=== PATIENT | male | born 1955 | race Caucasian/White ===

== ENCOUNTER 2018-02-03 06:48 | Day surgery (SDC) | payer MEDICARE, BC ==
[2018-02-02 11:03] VITALS: BMI 26.2
[~2018-02-03 06:48] MED LIST: Prevnar 13-Val Conj/PF 0.5 ML SYRINGE IM ONE
[2018-02-03] MEDS ORDERED: Heparin 1,000 UNITS/ML VIAL ONE ×2 (09:00)
[2018-02-03 09:07] VITALS: BP 115/82; TEMP 97
--- NOTE | 2018-02-03 10:15 | SPC ---
LEFT UPPER EXTREMITY DIALYSIS FISTULOGRAM: DATE: 02/03/18. FINDINGS: Informed consent was obtained. The left upper extremity was prepped and draped in the usual sterile manner. A 1% Lidocaine solution was used to anesthetize the overlying soft tissues. A small dermato katerin was made. A 5 Persian micropuncture set was used to gain access into the left upper extremity di alysis fistula. Left upper extremity dialysis fistulogram was performed. RADIATION DOSIMETRY: 1.6 minutes of fluoroscopy and DAP of 6.08 uGy*^cm2. Images demonstrate the left upper extremity dialysis fistula to be tortuous and have areas of intimal hyperplasia. There are areas of a large aneurysm in the proximal portion of the fistula. More dist ally, there is a second smaller area of aneurysmal dilatation. These likely represent areas of pseud oaneurysms from repeated fistula accesses. There is excellent inflow. There is good flow through th e left upper extremity fistula. The fistula consists of arterial anastomosis with the cephalic vein. The cephalic vein has been rerouted in anastomosis with the left axillary vein. The axillary vein and subclavian veins as well as left brachiocephalic vein and superior vena cava are all patent. 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 There is a large more proximal one and a smaller more distal area of aneurysmal dilatation. POS: SHIRAZ
[2018-02-03] MEDS ORDERED: Iopamidol 300 61% 100 ML VIAL FS ONE (13:58)
== END 2018-02-03 09:30 | disposition home or self-care (01) ==
LOC: SPEC 06:48
PROVIDERS: ATTEND Internal Medicine Nephrology
PROC: B50W1ZZ Plain Radiography of Dialysis Shunt/Fistula using Low Osmolar Contrast (ICD-10-PCS; principal; 2018-02-03)
DX: I77.0 Arteriovenous fistula, acquired (principal); Z91.041 Radiographic dye allergy status; Z88.1 Allergy status to other antibiotic agents
CPT/HCPCS: 36901; J1644

== ENCOUNTER 2018-03-01 13:04 | Day surgery (SDC) | payer MEDICARE, BC ==
--- NOTE | 2018-02-10 23:26 | HP ---
HISTORY OF PRESENT ILLNESS: Mrak Zuniga is a 62-year-old male dialyzes at [facility], followed by Dr. Zhu. He dialyzes Wednesday, Wednesday, and Wednesday at 3:00 p[address] The patient had pl acement of a left forearm fistula in 2005, revised upper arm fistula in 2009. He has had problems wi th persistent bleeding on one focus of the fistula in his upper arm. He underwent fistulogram at [facility] recently revealing aneurysmal dilatation and area of firmness. This fistulogram per formed on 02/03/2018. Per clinical history and scars on his upper extremity and fistulogram, it is a pparent that he has undergone previous revision of the cephalic vein outflow to the axillary vein or brachial vein. Outflow looks healthy. Plan is to revise his fistula with repair of his aneurysm. Chery rivera understands risks and benefits of procedure and consents. The patient has a history of dialyzing h imself at home, but now goes to outpatient dialysis. TOBACCO: None. ALCOHOL: None. MEDICATIONS: [place] p.r.n., Zofran p.r.n., B complex daily, Prozac 10 mg a day, atorvastatin 10 mg a day, niacin 500 mg a day, aspirin 81 mg a day, Protonix 40 mg a day, metoprolol 50 mg a day, Dialyvit e 800 mg a day, Ecotrin daily, Epogen routinely, Sensipar daily, Lipitor daily, carvedilol daily, Alvino vix daily, ranitidine daily. PAST SURGICAL HISTORY: The patient has a history of exstrophic bladder and as a child underwent xavier ral operations and has urostomy bag chronically. He has had 2006 left forearm fistula, probably Cimi no, converted to left upper arm fistula in 2009 with revision of outflow to the axillary or brachial vein, ORIF of TL spine last year, coronary artery bypass grafting in 2006 in [place], he is followed b y Dr. Santana, had coronary stents in 2012, has history of GI bleeding with esophageal ulcer cauterize d. DRUG ALLERGIES: LEVAQUIN, caused heel pain; IODINE. REVIEW OF SYSTEMS: Ten-point noncontributory. PHYSICAL EXAMINATION: VITAL SIGNS: Weight 177 pounds, height 67 inches, blood pressure 86/61, pulse 91, temperature 97 deg vicky. HEAD, EARS, EYES, NOSE, AND THROAT: Unremarkable. LUNGS: Clear to auscultation. CARDIAC: Regular rate and rhythm without murmur or gallop. ABDOMEN: Soft, nontender. The patient is in a motorized wheelchair. He has a urostomy appliance to his abdomen. He has left upper arm fistula with scars consistent with revision to cephalic vein out flow to the axillary vein. Good thrill and bruit in his fistula. He has aneurysm dilatation, mid up per arm. ASSESSMENT: Left upper extremity arteriovenous fistula aneurysm. PLAN: Repair as an outpatient due to prolonged bleeding. Risk and benefits explained. He consents.
[2018-02-28 12:36] VITALS: BMI 27.8
[2018-03-01 13:48] LABS: Hemoglobin 8.4 g/dL (14.0-18.0); Mean Corpuscular HGB CONC 31.9 g/dL (32.0-36.0); Mean Corpuscular Hemoglobin 33.6 pg (27.0-31.0); Mean Platelet Volume 7.1 fL (7.4-10.4); Platelet Count 190 thou/uL (130-400); RBC Distribution Width 17.7 % (11.5-14.5); White Blood Cell (WBC) Count 3.4 thou/uL (4.8-10.8)
[2018-03-01 14:07] LABS: Anisocytosis SLIGHT = 6-15 cells (100X) (0-5/hpf); Band 13 % (5-11); Eosinophils 3 % (0-10); Lymphocytes 25 % (21-51); MDiff Complete? YES; Macrocytosis SLIGHT = 6-15 cells (100X) (0-5/hpf); Monocytes 24 % (0-10); Neutrophil 33 % (42-75); Ovalocytes SLIGHT = 2-5 cells (100X) (0-1/hpf); PLT Morphology Comment Appears Adequate; Polychromasia SLIGHT = 2-3 cells (100X) (0-2/hpf); Reactive Lymphocytes 1 % (0-10)
[2018-03-01 14:18] LABS: Anion Gap 12 mmol/L (10-20); BUN (Urea Nitrogen) 32 mg/dL (8.4-25.7); Calc. Creatinine Clearance 33 mL/min (70-130); Calcium 10.1 mg/dL (7.8-10.44); Carbon Dioxide 31 mmol/L (23-31); Chloride 99 mmol/L (98-107); Estimated GFR-MDRD 25; Glucose 78 mg/dL (80-115); Potassium 4.6 mmol/L (3.5-5.1); Sodium 137 mmol/L (136-145)
[2018-03-01] MEDS ORDERED: Midazolam HCl 2 mg/2 ml Vial ONE (14:55)
[2018-03-01] MEDS ORDERED: Fentanyl 100 MCG/2 ML VIAL ONE ×2 (14:55→17:04)
[2018-03-01] MEDS ORDERED: Bupivacaine PF 0.5% 30 ML VIAL ONE (15:13)
[2018-03-01] MEDS ORDERED: Bupivacaine HCl 0.5%/Epinephrine 1:200,000/PF 30 ml Vial ONE (16:49)
[2018-03-01] MEDS ORDERED: Lidocaine 2% 10 ML INJ ONE (16:49)
[2018-03-01] MEDS ORDERED: Protamine Sulfate 50 MG/5 ML VIAL ONE (16:49)
[2018-03-01] MEDS ORDERED: Heparin 5,000 UNITS/ML VIAL ONE (16:49)
[2018-03-01] MEDS ORDERED: CEFAZOLIN/Water 2 GM/20 ML SYRINGE ONE (17:08)
[2018-03-01] MEDS ORDERED: Bacitracin Zinc Ointment 30 gm TUBE ONE (18:33)
--- NOTE | 2018-03-01 22:15 | OP ---
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 PROCEDURE: Left upper arm cephalic vein arteriovenous fistula aneurysmorrhaphy aneurysm repair. SURGEON: Brandt Hazel M.D. ANESTHESIA: Regional TIVA. DESCRIPTION OF PROCEDURE: The patient was taken to the operating room where under intravenous sedati on and regional anesthesia, left upper extremity was prepped with ChloraPrep, draped in routine fashi on. Incision was made over the aneurysmal dilatation of the cephalic vein fistula left upper arm. T his fistula had been revised to the axillary outflow. The patient was given 6000 units heparin intra venously. After adequate circulation time, the inflow and outflow cephalic vein clamped with vascula r clamp and aneurysm dilatation incised. It was a large saccular aneurysm. Redundant aneurysm sac e xcised elliptically and closed with a plication running to and fro 4-0 Prolene suture. Vascular clam ps released, good flow noted, good hemostasis obtained with the cautery, clips and 4-0 and 6-0 Prolen e. Good hemostasis noted. The patient given 25 mg of protamine intravenously. Subcutaneous tissues approximated with 3-0 Monocryl, skin with subdermal 4-0 Monocryl and DermaGlue applied.
== END 2018-03-01 19:50 | disposition home or self-care (01) ==
LOC: SDC 13:04
PROVIDERS: ATTEND Specialist
PROC: 05WY03Z Revision of Infusion Device in Upper Vein, Open Approach (ICD-10-PCS; principal; 2018-03-01)
DX: T82.898A Other specified complication of vascular prosthetic devices, implants and grafts, initial encounter (principal); I12.0 Hypertensive chronic kidney disease with stage 5 chronic kidney disease or end stage renal disease; N18.6 End stage renal disease; I25.10 Atherosclerotic heart disease of native coronary artery without angina pectoris; Z91.041 Radiographic dye allergy status; Z88.1 Allergy status to other antibiotic agents; Z99.2 Dependence on renal dialysis; Z98.890 Other specified postprocedural states
CPT/HCPCS: 36415; 80048; 85025; 93005; 93010; J0670; J1644; J2250; J2720; J3010; S0020

== ENCOUNTER 2018-03-22 10:21 | Day surgery (SDC) | payer MEDICARE, BC ==
[2018-03-18 11:29] VITALS: BMI 27.8
[2018-03-22] MEDS ORDERED: PROPOFOL 200 MG/20 ML VIAL ONE (11:14)
--- NOTE | 2018-03-22 13:42 | OP ---
DATE OF PROCEDURE: 03/22/2018 SURGEON: Miriam Kearns M.D. PROCEDURE: Esophagogastroduodenoscopy with biopsy. PREOPERATIVE DIAGNOSES: 1. History of bleeding esophageal ulcer in 11/2017. 2. Second look EGD to verify complete healing of the ulcer. POSTOPERATIVE DIAGNOSES: 1. Examination to second portion of duodenum. 2. No evidence of esophageal ulcer. 3. Small sliding hiatal hernia, less than 1 cm. 4. Punctate whitish exudate in the proximal third of the esophagus, suspicious for Caprice, biopsied . 5. Normal stomach. 6. Normal duodenum. PROCEDURE IN DETAIL: Written informed consent was obtained. The patient was brought to the endoscop y suite. Total intravenous anesthesia was administered by Dr. [facility]. The lisa ent was placed in the left lateral decubitus position. A bite block was inserted into the mouth. A Pentax video diagnostic gastroscope was introduced into the oral cavity and the esophagus was careful ly intubated. The gastroscope was advanced under direct visualization to the duodenal bulb. Endosco pic findings revealed no evidence of esophageal ulcer. The area between 30-40 cm from the incisors w as examined and reexamined several times to verify complete resolution of the ulcer. The previous es ophageal ulcer identified in Jeff was at 35 cm from the incisors. A few punctate whitish exudates were noted especially in the proximal third of the esophagus suspicious for possible yeast infection. Biopsies were obtained for histology. A small sliding hiatal hernia, less than 1 cm in length, was noted in the distal esophagus. The stomach was then entered and carefully examined. This included a retroflexed view of the cardia and fundus. There were no abnormalities. The duodenal bulb was als o examined and appeared grossly normal. No ulcers were seen. The stomach was decompressed as the en doscope was removed from the patient. During the procedure, transient hypoxemia was treated with jaw thrust and supplemental oxygen. The patient responded promptly to these maneuvers and the endoscopy was resumed and the exam was completed as detailed above. RECOMMENDATIONS: 1. Await biopsy results. 2. Ask the patient to call me in 1 week for biopsy results. 3. Continue pantoprazole 40 mg daily. 4. Follow up with Gastroenterology as needed.
== END 2018-03-22 14:08 | disposition home or self-care (01) ==
LOC: SDC 10:21
PROVIDERS: ATTEND Internal Medicine Gastroenterology
PROC: 0DB58ZZ Excision of Esophagus, Via Natural or Artificial Opening Endoscopic (ICD-10-PCS; principal; 2018-03-22)
DX: K22.8 Other specified diseases of esophagus (principal); K44.9 Diaphragmatic hernia without obstruction or gangrene; K52.9 Noninfective gastroenteritis and colitis, unspecified; K21.9 Gastro-esophageal reflux disease without esophagitis; N18.6 End stage renal disease; G62.9 Polyneuropathy, unspecified; Z88.1 Allergy status to other antibiotic agents; Z91.041 Radiographic dye allergy status; Z87.891 Personal history of nicotine dependence; Z79.899 Other long term (current) drug therapy
CPT/HCPCS: 88305; 88312; 88313; J2704

== ENCOUNTER 2018-03-28 15:14 | Inpatient (IN) | payer MEDICARE, BC ==
[2018-03-28] MEDS ORDERED: Acetaminophen 500 MG TAB ONE (15:57)
[2018-03-28 16:14] LABS: Hemoglobin 9.8 g/dL (14.0-18.0); Mean Corpuscular HGB CONC 31.5 g/dL (32.0-36.0); Mean Corpuscular Hemoglobin 32.1 pg (27.0-31.0); Mean Platelet Volume 8.7 fL (7.4-10.4); Platelet Count 196 thou/uL (130-400); RBC Distribution Width 15.9 % (11.5-14.5); Red Blood Cell (RBC) Count 3.06 mill/uL (4.70-6.10); White Blood Cell (WBC) Count 6.3 thou/uL (4.8-10.8)
--- NOTE | 2018-03-28 16:19 | RAD ---
PORTABLE CHEST: Date: 03/28/18 COMPARISON: 04/28/17. HISTORY: Dyspnea. FINDINGS: Heart size is enlarged. There are postop sternotomy changes. There has been development of some incre ased density in the left bases suggesting infiltrate, perhaps with effusion. Some minimal parenchymal changes are seen in the right base. Surgical clips are seen in the epigastric region. IMPRESSION: Increased opacification in the left lung base suggesting infiltrate or possibly atelectasis with effu sylvia. POS: SHIRAZ
[2018-03-28 16:33] LABS: CKMB 3.7 ng/mL (0-6.6); Troponin I 0.023 ng/mL (< 0.028)
[2018-03-28 16:38] LABS: Anisocytosis SLIGHT = 6-15 cells (100X) (0-5/hpf); Band 13 % (5-11); Eosinophils 4 % (0-10); Lymphocytes 12 % (21-51); MDiff Complete? YES; Macrocytosis SLIGHT = 6-15 cells (100X) (0-5/hpf); Monocytes 11 % (0-10); Neutrophil 60 % (42-75); PLT Morphology Comment Appears Adequate; Polychromasia SLIGHT = 2-3 cells (100X) (0-2/hpf)
[2018-03-28 17:21] LABS: Albumin 3.5 g/dL (3.4-4.8)
[2018-03-28 17:22] LABS: Calcium 10.5 mg/dL (7.8-10.44); Chloride 100 mmol/L (98-107); Potassium 5.3 mmol/L (3.5-5.1); Sodium 140 mmol/L (136-145)
[2018-03-28 17:23] LABS: Glucose 84 mg/dL (80-115)
[2018-03-28] MEDS ORDERED: Piperacillin/Tazobactam 4.5 GM VIAL ONE (17:23)
[2018-03-28 17:24] LABS: Globulin 2.9 g/dL (2.4-3.5); Protein, Total 6.4 g/dL (5.8-8.1)
[2018-03-28 17:25] LABS: Anion Gap 21 mmol/L (10-20); Carbon Dioxide 24 mmol/L (23-31)
[2018-03-28 17:26] LABS: Alkaline Phosphatase 236 U/L (40-150)
[2018-03-28 17:27] LABS: BUN (Urea Nitrogen) 59 mg/dL (8.4-25.7); Calc. Creatinine Clearance 0 mL/min (70-130); Estimated GFR-MDRD 16
[2018-03-28 17:28] LABS: AST (SGOT) 22 U/L (5-34)
[2018-03-28 17:29] LABS: ALT (SGPT) 17 U/L (8-55)
[2018-03-28] MEDS ORDERED: Calcium Gluc 4.6 MEQ/10 ML (100 MG/ML) ONE (18:10)
--- NOTE | 2018-03-28 18:12 | PDOC.FPRHP ---
- History of Present Illness Chief Complaint: Chills History of Present Illness: This is a 62 y/o M with a PMHx of ESRD on HD MWF, CAD s/p 5v CABG, and CHF with most recent EF of 45-50% who presents to the ED due to chills and nausea. The history was obtained by the due to the patient's AMS. The patient was feeling fine this AM, but then suddenly while driving to [place] he began having chills. He continued getting progressively worse. He began complaining of nausea as well, but no emesis. He never checked his temperature. He was also complaining of body aches. He got more and more sleepy throughout the day. She took him to dialysis that afternoon, but they said to just bring him to the ED. He is compliant with dialysis, and his last dialysis was Wednesday. He does not make urine. He had been having a cough that is not new, but has become more "wet sounding". He has a complicated h/o being in and out of LTAC/rehab facilities over the past 11 months after being hospitalized for a T12-L1 fx and subsequent MSSA infection. He is now non-ambulatory. He is currently being worked up for Chronic Inflammatory Demyelinating Polyneuropathy. He has lost 50 pounds in the past few months. ED Course: The patient was evaluated in the ED by Dr. Hubbard and was given 1g Calcium gluconate, 2 boluses of 500mL, Zosyn 4.5g, Vanc 15mg/kg, Tylenol 1000mg - Allergies/Adverse Reactions Allergies Allergy/AdvReac Type Severity Reaction Status Date / Time Iodinated Contrast- Oral and Allergy Hives Verified 03/28/18 20:17 IV Dye [Iodinated Contrast Media - IV Dye] levofloxacin [From Levaquin] Allergy heel pain Verified 03/28/18 20:17 - Home Medications Medication Instructions Recorded Confirmed Type Pregabalin [Lyrica] 75 mg PO BID 03/27/17 03/28/18 History Multivit, Therapeutic [Theragran] 1 tab PO HS tab 04/08/17 03/28/18 Rx Atorvastatin Calcium [Lipitor] 10 mg PO HS 02/02/18 03/28/18 History L. Acidophilus/Pectin, Hemphill 1 tablet PO BID 02/02/18 03/28/18 History [Acidophilus Caplet] Niacin (Inositol Niacinate) 1,000 mg PO HS 02/02/18 03/28/18 History [Niacin] Ondansetron HCl [Zofran] 4 mg PO Q8HR PRN 02/02/18 03/28/18 History Pantoprazole [Protonix] 40 mg PO DAILY 02/02/18 03/28/18 History traZODone HCl [Trazodone HCl] 50 mg PO HS 02/02/18 03/28/18 History Ascorbate Calcium [Vitamin C] 500 mg PO DAILY 02/28/18 03/28/18 History Aspirin [Adult Aspirin] 81 mg PO DAILY 02/28/18 03/28/18 History FLUoxetine HCl [Fluoxetine HCl] 40 mg PO DAILY 02/28/18 03/28/18 History Vitamin B Complex 1 each PO DAILY 02/28/18 03/28/18 History Zinc 220 mg PO DAILY 02/28/18 03/28/18 History - History PMHx: 1. ESRD on HD 2. MARTY on BiPAP - he has not been compliant with using this lately 3. CAD s/p CABG and stents 4. Anemia of CKD 5. CHF (EF 45-50% in 04/2017) 6. T12-L1 Fx 7. Esophageal Ulcer PSHx: 1. 5v CABG 2. 2 coronary stents 3. L AV fistula 4. Cholecystectomy FHx: Sister - DM, HTN Mom - HTN Social: , bed bound, former 20 pack year smoking history, quit 35 years ago. Denies EtOH or drug use PCP: Tejinder Oneil [employer]: Audra - Review of Systems ROS unobtainable: due to mental status - Vital signs BP: 101/79 HR: 113 RR: 24 Tmax: 100.1 Pox: 96% on 2L Wt: 71.8kg - Physical Exam Constitutional: NAD, well developed, other (lethargic, drowsy) HEENT: normocephalic and atraumatic, PERRLA, conjunctiva clear, normal nasal mucosa, MMM, oropharynx clear Neck: supple, no LAD, no JVD Heart: RRR, normal S1/S2, no murmurs/rubs/gallops, pulses present, other (1+ pitting edema to mid-lozano bilaterally, thrill over L AV fistula) -Lungs: good respiratory effort, rhonchi bilaterally, worse on L, decreased breath sounds at L lung base Abdomen: soft, bowel sounds present, no masses/distention, other (mildly tender to palpation, no guarding or rebound) Musculoskeletal: normal structure, normal tone -Neurological: GCS 13, CN II-XII intact Skin: no rash/lesions, good turgor, capillary refill <2 seconds Heme/Lymphatic: no unusual bruising or bleeding FMR H&P: Results - Labs Result Diagrams: 03/28/18 16:00 03/28/18 16:57 Lab results: WBC 6.3 thou/uL (4.8-10.8) 03/28/18 16:00 Hgb 9.8 g/dL (14.0-18.0) L 03/28/18 16:00 Hct 31.2 % (42.0-52.0) L 03/28/18 16:00 MCV 102.0 fl (80.0-94.0) H 03/28/18 16:00 Plt Count 196 thou/uL (130-400) 03/28/18 16:00 Band Neuts % (Manual) 13 % (5-11) H 03/28/18 16:00 Sodium 140 mmol/L (136-145) 03/28/18 16:57 Potassium 5.3 mmol/L (3.5-5.1) H 03/28/18 16:57 Chloride 100 mmol/L (98-107) 03/28/18 16:57 Carbon Dioxide 24 mmol/L (23-31) 03/28/18 16:57 BUN 59 mg/dL (8.4-25.7) H 03/28/18 16:57 Creatinine 3.90 mg/dL (0.6-1.3) H 03/28/18 16:57 Glucose 84 mg/dL (80-115) 03/28/18 16:57 Lactic Acid 2.9 mmol/L (0.5-2.2) H 03/28/18 16:00 Calcium 10.5 mg/dL (7.8-10.44) H 03/28/18 16:57 Total Bilirubin 1.0 mg/dL (0.2-1.2) 03/28/18 16:57 AST 22 U/L (5-34) 06/04/18 16:57 ALT 17 U/L (8-55) 03/28/18 16:57 Alkaline Phosphatase 236 U/L (40-150) H 03/28/18 16:57 CK-MB (CK-2) 3.7 ng/mL (0-6.6) 03/28/18 16:00 B-Natriuretic Peptide 1192.9 pg/mL (0-100) H 03/28/18 16:00 Serum Total Protein 6.4 g/dL (5.8-8.1) 03/28/18 16:57 Albumin 3.5 g/dL (3.4-4.8) 03/28/18 16:57 - EKG Interpretation EKG: Sinus tachycardia, ST depression in V5, V6 - Radiology Interpretation Chest x-ray Status: image reviewed by me, report reviewed by me Additional comment: increased opacification at left lung base suggesting infiltrate or possibly atelectasis with effusion FMR H&P: A/P - Problem List (1) Severe sepsis Current Visit: Yes Status: Acute Code(s): A41.9 - SEPSIS, UNSPECIFIED ORGANISM; R65.20 - SEVERE SEPSIS WITHOUT SEPTIC SHOCK (2) HAP (hospital-acquired pneumonia) Current Visit: Yes Status: Acute Code(s): J18.9 - PNEUMONIA, UNSPECIFIED ORGANISM (3) Lactic acidosis Current Visit: Yes Status: Acute Code(s): E87.2 - ACIDOSIS (4) Acute confusion Current Visit: No Status: Acute Code(s): R41.0 - DISORIENTATION, UNSPECIFIED (5) Acute respiratory failure Current Visit: Yes Status: Acute Code(s): J96.00 - ACUTE RESPIRATORY FAILURE , UNSP W HYPOXIA OR HYPERCAPNIA Qualifiers: Respiratory failure complication: hypoxia Qualified Code(s): J96.01 - Acute respiratory failure with hypoxia (6) CAD (coronary artery disease) Current Visit: No Status: Chronic Code(s): I25.10 - ATHSCL HEART DISEASE OF [place] CORONARY ARTERY W/O ANG PCTRS Qualifiers: Coronary Disease-Associated Artery/Lesion type: [place] artery [place] vs. transplanted heart: [place] heart Associated angina: without angina Qualified Code(s): I25.10 - Atherosclerotic heart disease of [place] coronary artery without angina pectoris (7) ESRD (end stage renal disease) on dialysis Current Visit: No Status: Chronic Code(s): N18.6 - END STAGE RENAL DISEASE; Z99.2 - DEPENDENCE ON RENAL DIALYSIS (8) H/O esophageal ulcer Current Visit: Yes Status: Acute Code(s): Z87.19 - PERSONAL HISTORY OF OTHER DISEASES OF THE DIGESTIVE SYSTEM (9) Compression fracture of L1 lumbar vertebra Current Visit: No Status: Acute Code(s): S32.010A - WEDGE COMPRESSION FRACTURE OF FIRST LUMBAR VERTEBRA, INIT Qualifiers: Encounter type: subsequent encounter Fracture type: closed Fracture healing: with routine healing Qualified Code(s): S32.010D - Wedge compression fracture of first lumbar vertebra, subsequent encounter for fracture with routine healing Comment: has radiculopathy (10) MARTY treated with BiPAP Current Visit: No Status: Chronic Code(s): G47.33 - OBSTRUCTIVE SLEEP APNEA (ADULT) (PEDIATRIC) (11) Anemia of chronic disease Current Visit: No Status: Chronic Code(s): D63.8 - ANEMIA IN OTHER CHRONIC DISEASES CLASSIFIED ELSEWHERE - Plan Severe Sepsis 2/2 HAP Patient has tachycardia, tachypnea, 13% bands, and LL lung infiltrate, suggestive of PNA. The patient also is lethargic. The patient has been in and out of LTAC/Rehab facilities and had recent surgery in February 2018 on his fistula. His initial lactate was 2.9. s/p Vanc, zosyn, and 1L NS in the ED. Patient is anuric, so did not get UA or urine cx. -Will admit to tele -NS @ 115, monitor for signs of fluid overload due to pt's ESRD -Vanc, Zosyn, Cefepime for HAP coverage -Trend lactate -Blood cultures -NPO at this time due to pt's lethargy, pending dysphagia screen Hospital Acquired Pneumonia Patient has had recent stays in LTAC/rehab, surgeries, and IV abx. He has LLL infiltrate on CXR and signs of sepsis. -Vanc, Zosyn, Cefepime -Blood Cultures -NS @ 115 Lactic Acidosis Initial lactate was 2.9 -Trend lactate -NS @ 115, s/p 1L NS in the ED Acute Hypoxic Respiratory Failure Patient is requiring 2L O2 to maintain O2 sats above 92%. He also uses BiPAP at night to sleep for MARTY, but has been non-compliant with this lately. The patient is lethargic and drowsy and per the has been getting worse throughout the day. -ABG -O2 prn to maintain sats >92% -BiPAP at night ST Depression in V5, V6 The patient has h/o CAD, initial trop was negative. No complaints of chest pain. -Trend trops -Continue aspirin -Monitor on tele -Repeat EKG if new or worsening CP ESRD on HD Patient gets HD MWF, last dialyzed on Wednesday. No signs of fluid overload at this time. -Dr. Zhu has been consulted, appreciate recs -Renally dose medications CAD s/p 5v CABG and [address] elevation on EKG -Monitor on tele -Aspirin MARTY on BiPAP -Continue BiPAP at night CHF Last EF in 04/2017 was 45-50% -Monitor for signs of overload with giving pt fluids Anemia of CKD Hb 9.8 on admission, near pt's baseline -Stable, will monitor h/o Esophageal Ulcer -Continue protonix once pt more alert h/o T12-L1 fx VTE ppx: heparin Code status: DNR Disposition/LOS: Admit to tele, length of stay likely 2 days FMR H&P: Upper Level - Pertinent history 62 yo M with PMH of ESRD on HD, multiple recent LTAC stays, CAD s/p 5v CABG presenting with nausea, cough, and chills worsening over the past few days. Was scheduled to receive dialysis today with Dr. Zhu, but was not feeling well , and was advised to go to the ER. Recently hospitalized for T12 and L1 fracture that was complicated by MSSA sepsis for which he required a significant LTAC stay to recover from. Has also been undergoing work up for potential diagnosis of chronic immune demyelinating polyneuropathy due to his gradual loss of function of his legs, for which he is wheelchair bound. Had had some chills recently, but no measured fevers at home. 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 No known recent sick contacts. - Pertinent findings PE: T: 99.1 P: 117 BP: 97/73 RR: 24 100% 2L N/C Gen: somnolent male in NAD HEENT: PERRL, EOMI, MMM, no lymphadenopathy or thyromegaly CV: RRR no murmurs, distal pulses intact, R fistula with intact thrill Pulm: bilateral rhonchorous breath sounds, worse on L than R, michele. at base Abd: soft, NT/ND, BS present, no masses or distention Ext: pitting edema to mid lozano bilaterally MSK: MILLER well, no joint or muscle pain or swelling Neuro: CN 2-12 intact, normal sensation, decreased strength in bilateral LE Skin: no rashes or lesions Psych: A&O x2, appropriate in conversation - Plan Date/Time: 03/28/18 1809 62 yo M presenting with fatigue and nausea. 1) Acute hypoxic respiratory failure: Likely 2/2 severe sepsis from pneumonia. Not on oxygen at home. CXR concerning for possible pneumonia, will treat for HAP given multiple LTAC stays in last few months, and recent antibiotics for surgical procedures this year. Would benefit from resumption of BiPAP overnight , though he has been off this the last week or two. Duonebs prn. Blood cultures pending. Continue IVF resuscitation. PT/OT. 2) Severe sepsis 2/2 HAP: Plan as above. 3) ESRD on MWF HD: Audra consulted, plan for dialysis tonight. 4) CAD: EKG in ER with STd in V5 and V6, trend troponins, monitor tele strip overnight, repeat EKG later tonight. Continue ASA. 5) MARTY: resume BiPAP 6) PUD: continue PPI I, [Kevin Euceda], have evaluated this patient and agree with findings/plan as outlined by legal internship resident. Pertinent changes/additions are listed here. Attending Addendum - Attending Addendum Date/Time: 03/28/18 458 I personally evaluated the patient and discussed the management with Dr. Mackey/ Ok. I agree with the History, Examination, Assessment and Plan documented above with any addition or exceptions noted below. Patient with history of ESRD on HD, CAD s/p 5vCABG, unspecified polyneuropathy, and nonambulatory status presenting after 1 day onset of worsening chills, body aches, nausea, and increased lethargy. endorses a subacute onset of "wet" cough. Throughout today, patient continued to decline and was sent to the ER from his dialysis center. On exam, he is sleepy, but will answer questions appropriately, A&Ox3. BP 96/70. RRR c 3/6 systolic murmur. Lungs are overall clear on R side, rhonchi and rales present on the L side, mainly basilar. No edema. Warm extremities. Lab work is pertinent for normal WBC but bandemia. He has a chronic anemia, likely 2/2 ESRD. Other labs are consistent with chronic renal failure. His CXR shows likely infiltrate in the LLL. No major vascular congestion. Lactate initially elevated but now downtrending. Patient initially requiring 2L O2 by NC to keep sats >92%. A/P: 1. Acute hypoxic respiratory failure 2/2 Pneumonia, with concern for drug resistant organisms due to terminal superintendent presence in healthcare facilities, 2. ESRD on HD, 3. CAD s/p CABG, 4. Anemia of CKD. Patient will be admitted to [facility]. Check PCT. Continue broad spectrum abx and narrow as able. Will attempt to collect sputum culture. He did not receive adequate fluid resuscitation in the ER, but fortunately they are not removing volume in HD. Will continue hydration and increase IVF rate if he has mild hypotension. Blood cultures obtained. Supplemental O2 as necessary. HD sessions per Nephrology (Audra). Recheck lactate after HD session. Will check ABG to ensure no CO2 trapping with his lethargy, though there is no evidence currently of altered mentation. CPAP for his home MARTY.
[2018-03-28 20:11] LABS: Lactic Acid 2.3 mmol/L (0.5-2.2)
[2018-03-28] MEDS ORDERED: Ondansetron ODT 4 MG TAB PO PRN (21:06)
[2018-03-28] MEDS ORDERED: Ondansetron HCl/PF 4 MG/2 ML Vial IVP PRN (21:06)
[2018-03-28] MEDS ORDERED: CEFAZOLIN 1 GM in Sodium Chloride 0.9% 100 ML IVPB SCH (22:00)
[2018-03-28 23:09] LABS: Troponin I 0.086 ng/mL (< 0.028)
[2018-03-29 00:22] LABS: HBSAB Concentration 1.07 mIU/mL; HBSAg Index 0.32 S/CO (0-0.99); Hep B Surf AB Non-Reactive (NonReactive); Hep B Surf Ag Non-Reactive S/CO (NonReactive)
[2018-03-29 01:00] LABS: Troponin I 0.134 ng/mL (< 0.028)
[2018-03-29] MEDS: Heparin 5,000 UNITS/ML VIAL SC SCH ×4 (01:34→20:32)
[2018-03-29] MEDS: Cefepime 1 GM in Sodium Chloride 0.9% 100 ML IVPB SCH ×2 (01:35→21:19)
[2018-03-29] MEDS: Sodium Chloride 0.9% 1,000 ML IV SCH ×2 (01:35→12:27)
--- NOTE | 2018-03-29 01:47 | CON ---
NEPHROLOGY CONSULTATION DATE OF CONSULTATION: 03/28/2018 REASON FOR CONSULTATION: End-stage renal disease, on maintenance hemodialysis. HISTORY OF PRESENT ILLNESS: This is a very pleasant 62-year-old gentleman who presented to the [facility] with fever, chills, cough, and feeling weak. The patient was very somnolent. The patient dialys is Wednesday, Wednesday, and Wednesday. The patient has had a cough. PAST MEDICAL HISTORY: Significant for end-stage renal disease, hypertension, coronary artery disease , CABG, anemia, congestive heart failure, esophageal ulcer, coronary artery stent, left AV fistula, c holecystectomy. REVIEW OF SYSTEMS: Not obtainable. The patient is very somnolent. HOME MEDICATIONS: List reviewed. HOSPITAL MEDICATIONS: Reviewed. ALLERGIES: Reviewed. PHYSICAL EXAMINATION: GENERAL: Patient is resting. VITAL SIGNS: Afebrile, temperature 100, breathing at 16, blood pressure 101/79, heart rate 113. GENERAL APPEARANCE AND MENTAL STATUS: Fair. HEAD/NECK: Normocephalic. Atraumatic. EYES: EOMI. No deformity. EARS: Clear. No ulcers. NOSE: Intact. No lesions. MOUTH: Clear. No discharge. THROAT: Clear. No exudate. LUNGS: Clear. No crackles. CARDIAC: S1, S2. No rub. ABDOMEN: Benign. BS+. GENITALIA/RECTUM: Lea absent. BACK/EXTREMITIES: Edema 0+ Ulcer- SKIN: Rash- Bruise- LYMPHATICS: Edema- Ulcer- NEUROLOGIC: The patient is somnolent. LABORATORY: Potassium 5.3. ASSESSMENT AND RECOMMENDATIONS: Stage 6 chronic kidney disease with hyperkalemia and hypercalcemia. We will plan hemodialysis. No ultrafiltration will keep blood pressure more than 100. Anemia, stab le. Medication based on glomerular filtration rate. Pneumonia and sepsis management per primary sumit seo
[2018-03-29] MEDS: Piperacillin/Tazobactam 2.25 GM in Sodium Chloride 0.9% 100 ML IVPB SCH ×3 (02:24→20:27)
[2018-03-29 05:30] LABS: Anion Gap 11 mmol/L (10-20); BUN (Urea Nitrogen) 29 mg/dL (8.4-25.7); Calc. Creatinine Clearance 38 mL/min (70-130); Calcium 9.5 mg/dL (7.8-10.44); Carbon Dioxide 29 mmol/L (23-31); Chloride 103 mmol/L (98-107); Estimated GFR-MDRD 31; Glucose 82 mg/dL (80-115); Potassium 4.2 mmol/L (3.5-5.1); Sodium 139 mmol/L (136-145)
[2018-03-29 05:32] LABS: Troponin I 0.201 ng/mL (< 0.028)
[2018-03-29 06:32] LABS: Hemoglobin 7.6 g/dL (14.0-18.0); Mean Corpuscular HGB CONC 31.5 g/dL (32.0-36.0); Mean Corpuscular Hemoglobin 32.2 pg (27.0-31.0); Mean Platelet Volume 7.8 fL (7.4-10.4); Platelet Count 139 thou/uL (130-400); RBC Distribution Width 15.2 % (11.5-14.5); Red Blood Cell (RBC) Count 2.35 mill/uL (4.70-6.10); White Blood Cell (WBC) Count 5.9 thou/uL (4.8-10.8)
[2018-03-29 08:46] LABS: Band 22 % (5-11); Basophilic Stippling SLIGHT = 1-2 cells (100X) (None Seen); Eosinophils 1 % (0-10); Hypochromia SLIGHT = 6-15 cells (100X) (0-5/hpf); Lymphocytes 14 % (21-51); MDiff Complete? YES; Metamyelocyte 1 % (0-0); Monocytes 10 % (0-10); Neutrophil 50 % (42-75); PLT Morphology Comment Appears Adequate; Polychromasia SLIGHT = 2-3 cells (100X) (0-2/hpf); Reactive Lymphocytes 2 % (0-10)
[2018-03-29 08:54] LABS: Troponin I 0.243 ng/mL (< 0.028)
--- NOTE | 2018-03-29 08:59 | PDOC.FM ---
- Subjective Subjective: Patient is awake, oriented and found sitting in bed. He states he feels better. He denies fever, chills, SOB, pain. - Objective MAR Reviewed: Yes Vital Signs & Weight: Vital Signs (12 hours) Temp Pulse Resp BP Pulse Ox 03/29/18 07:35 98.3 F 88 16 91/59 L 94 L 03/29/18 04:09 97.9 F 78 17 96/64 99 03/29/18 01:27 97.4 F L 88 19 93/87 97 I&O: 03/28/18 03/29/18 03/30/18 06:59 06:59 06:59 Intake Total 744 Output Total 0 Balance 744 Result Diagrams: 03/29/18 05:01 03/29/18 05:01 Phys Exam - Physical Examination Constitutional: NAD HEENT: moist MMs Neck: no nodes, supple Respiratory: no wheezing, no rhonchi Cardiovascular: RRR 2/6 systolic murmur Gastrointestinal: soft, no distention Musculoskeletal: no edema Neurological: non-focal, moves all 4 limbs Lymphatic: no nodes Psychiatric: normal affect Deviation from normal: Sternotomy scar Dx/Plan (1) HAP (hospital-acquired pneumonia) Code(s): J18.9 - PNEUMONIA, UNSPECIFIED ORGANISM Status: Acute Plan: Improving at this time without need for supplemental O2 Plan for continued broad abx, await culture result. (2) Acute respiratory failure Code(s): J96.00 - ACUTE RESPIRATORY FAILURE, UNSP W HYPOXIA OR HYPERCAPNIA Status: Acute Qualifiers: Respiratory failure complication: hypoxia Qualified Code(s): J96.01 - Acute respiratory failure with hypoxia Plan: Issue resolving, with patient no longer needing supplemental oxyhgen. Plan for cpap at night for his known MARTY (3) Severe sepsis Code(s): A41.9 - SEPSIS, UNSPECIFIED ORGANISM; R65.20 - SEVERE SEPSIS WITHOUT SEPTIC SHOCK Status: Acute Plan: Improving issue. Mentation is appropriate, vitals stable. (4) ESRD (end stage renal disease) on dialysis Code(s): N18.6 - END STAGE RENAL DISEASE; Z99.2 - DEPENDENCE ON RENAL DIALYSIS Status: Chronic Plan: Dr. Zhu with nephrology consulted. Appreciate recs. Patient will receive dialysis while here. (5) Acute confusion Code(s): R41.0 - DISORIENTATION, UNSPECIFIED Status: Acute Plan: Resolved issue. (6) HTN (hypertension) Code(s): I10 - ESSENTIAL (PRIMARY) HYPERTENSION Status: Chronic Qualifiers: Hypertension type: essential hypertension Qualified Code(s): I10 - Essential (primary) hypertension Plan: Hold BP med at this time. Will monitor BP and restart as needed. (7) Elevated troponin Code(s): R74.8 - ABNORMAL LEVELS OF OTHER SERUM ENZYMES Status: Acute Plan: At this time, currently uptrending, but in indeterminate range. Patient denies SOB or chest pain. Likely reflect demand ischemia from sepsis and ESRD with decreased trop clearance.
[2018-03-29] MEDS ORDERED: Aspirin 300 MG Suppository PR SCH (09:00)
[2018-03-29] MEDS: FLUoxetine HCl 20 MG CAP PO SCH (09:41)
--- NOTE | 2018-03-29 13:06 | PRG ---
DATE OF SERVICE: 03/29/2018 SUBJECTIVE: A 62-year-old gentleman being seen for end-stage renal disease. The patient denies any nausea, vomiting or chest pain. OBJECTIVE: VITAL SIGNS: Afebrile, pulse 75, breathing 16, blood pressure 96/64. GENERAL APPEARANCE AND MENTAL STATUS: Patient is awake, alert. HEAD/NECK: Normocephalic. Atraumatic. EYES: EOMI. No deformity. EARS: Clear. No ulcers. NOSE: Intact. No lesions. MOUTH: Clear. No discharge. THROAT: Clear. No exudate. LUNGS: Clear. No crackles. CARDIAC: S1, S2. No rub. ABDOMEN: Benign. BS+. GENITALIA/RECTUM: Lea absent. BACK/EXTREMITIES: Edema 0+ Ulcer- NEUROLOGICAL: Alert and motor intact. SKIN: Rash- Bruise- LYMPHATICS: Edema- Ulcer- LABORATORY DATA: Hemoglobin 7.6. ASSESSMENT AND RECOMMENDATIONS: 1. Stage 6 chronic kidney disease. Continue hemodialysis. 2. Hypertension. 3. Anemia, plan transfusion and dialysis. 4. Medications based on glomerular filtration rate are appropriate.
[2018-03-29] MEDS ORDERED: Vancomycin HCl 750 MG in Sodium Chloride 0.9% 250 ML 250 ML IVPB SCH (16:00)
[2018-03-29] MEDS: Atorvastatin Calcium 10 MG TAB PO SCH (20:32)
[2018-03-29] MEDS: Lactinex Tablet PO SCH (20:32)
[2018-03-29] MEDS: Multivit, Therapeutic 1 TAB PO SCH (20:32)
[2018-03-29] MEDS ORDERED: ACIDOPHILUS PO SCH (21:00)
[2018-03-29] MEDS ORDERED: PECTIN CITRUS PO SCH (21:00)
[2018-03-29] MEDS ORDERED: NIACIN 1000 MG PO SCH (21:00)
[2018-03-29] MEDS ORDERED: Atorvastatin Calcium 20 MG TAB PO SCH (21:00)
[2018-03-29] MEDS ORDERED: Pregabalin 75 MG CAP PO SCH (22:15)
[2018-03-30] MEDS: Piperacillin/Tazobactam 2.25 GM in Sodium Chloride 0.9% 100 ML IVPB SCH ×3 (01:44→18:09)
[2018-03-30 04:50] LABS: Band 7 % (5-11); Eosinophils 4 % (0-10); Hemoglobin 10.1 g/dL (14.0-18.0); Lymphocytes 30 % (21-51); MDiff Complete? YES; Mean Corpuscular HGB CONC 32.1 g/dL (32.0-36.0); Mean Corpuscular Hemoglobin 31.1 pg (27.0-31.0); Mean Corpuscular Volume 96.8 fl (80.0-94.0); Mean Platelet Volume 8.4 fL (7.4-10.4); Monocytes 12 % (0-10); Neutrophil 45 % (42-75); PLT Morphology Comment Appears Adequate; Platelet Count 128 thou/uL (130-400); RBC Distribution Width 16.9 % (11.5-14.5); Red Blood Cell (RBC) Count 3.25 mill/uL (4.70-6.10); White Blood Cell (WBC) Count 4.5 thou/uL (4.8-10.8)
[2018-03-30 04:52] LABS: Anion Gap 16 mmol/L (10-20); BUN (Urea Nitrogen) 23 mg/dL (8.4-25.7); Calc. Creatinine Clearance 44 mL/min (70-130); Calcium 9.9 mg/dL (7.8-10.44); Carbon Dioxide 23 mmol/L (23-31); Chloride 103 mmol/L (98-107); Estimated GFR-MDRD 34; Glucose 79 mg/dL (80-115); Potassium 3.9 mmol/L (3.5-5.1); Sodium 138 mmol/L (136-145)
[2018-03-30] MEDS ORDERED: Non-Formulary Item 1 EACH (Vitamin B Complex [Vitamin B Complex] 1 EACH) PO SCH (09:00)
[2018-03-30] MEDS ORDERED: FLUoxetine HCl 10 MG CAP PO SCH (09:00)
[2018-03-30] MEDS ORDERED: Non-Formulary Item 1 EACH (Ascorbate Calcium [Vitamin C] 500 MG) PO SCH (09:00)
[2018-03-30] MEDS ORDERED: ZINC 220 MG PO SCH (09:00)
[2018-03-30] MEDS: Ascorbic Acid 500 mg Chewable Tablet PO SCH (10:20)
[2018-03-30] MEDS: Zinc Sulfate 220 MG CAP PO SCH (10:20)
[2018-03-30] MEDS: FLUoxetine HCl 20 MG CAP PO SCH (10:20)
[2018-03-30] MEDS: Heparin 5,000 UNITS/ML VIAL SC SCH ×3 (10:20→20:50)
[2018-03-30] MEDS: Lactinex Tablet PO SCH ×2 (10:21→20:50)
[2018-03-30] MEDS: Stress 600 With Zinc 1 TAB PO SCH (10:21)
--- NOTE | 2018-03-30 10:48 | PDOC.FM ---
- Subjective Subjective: Patient found in bed, having breakfast. He denies SOB, fever, cough, chills or pain. He has no complaint except hospital food. - Objective MAR Reviewed: Yes Vital Signs & Weight: Vital Signs (12 hours) Temp Pulse Resp BP BP Pulse Ox 03/30/18 03:53 98.0 F 87 20 121/81 97 03/30/18 00:00 98.8 F 81 18 95/64 93 L Weight Admit Weight 79.424 kg Weight 82.418 kg I&O: 03/29/18 03/30/18 03/31/18 06:59 06:59 06:59 Intake Total 744 2900 Output Total 0 0 Balance 744 2900 Result Diagrams: 03/30/18 04:12 03/30/18 04:12 <Gera Dennis M - Last Filed: 03/30/18 10:44> - Objective Vital Signs & Weight: Vital Signs (12 hours) Temp Pulse Pulse Pulse Resp BP BP 03/30/18 09:29 80 87 103/67 117/76 03/30/18 08:00 98.0 F 87 20 03/30/18 03:53 98.0 F 87 20 BP Pulse Ox 03/30/18 09:29 03/30/18 08:00 96 03/30/18 03:53 121/81 97 Weight Admit Weight 79.424 kg Weight 82.418 kg I&O: 03/29/18 03/30/18 03/31/18 06:59 06:59 06:59 Intake Total 744 2900 Output Total 0 0 Balance 744 2900 Result Diagrams: 03/30/18 04:12 03/30/18 04:12 <Lester Gongora R - Last Filed: 03/30/18 14:27> Phys Exam - Physical Examination Constitutional: NAD HEENT: moist MMs Respiratory: no wheezing, no rhonchi Cardiovascular: RRR, no significant murmur Gastrointestinal: soft, non-tender, no distention Musculoskeletal: no edema Neurological: moves all 4 limbs Lymphatic: no nodes Psychiatric: normal affect Skin: no rash <Gera Dennis M - Last Filed: 03/30/18 10:44> Dx/Plan (1) HAP (hospital-acquired pneumonia) Code(s): J18.9 - PNEUMONIA, UNSPECIFIED ORGANISM Status: Acute Plan: Improving at this time without need for supplemental O2, except as substitute for cpap as patient does not like hospital cpap Plan for continued broad abx, await culture result. (2) Acute respiratory failure Code(s): J96.00 - ACUTE RESPIRATORY FAILURE, UNSP W HYPOXIA OR HYPERCAPNIA Status: Acute QualifierTitle: Respiratory failure complication: hypoxia Qualified Code( s): J96.01 - Acute respiratory failure with hypoxia Plan: Resolved issue (3) Severe sepsis Code(s): A41.9 - SEPSIS, UNSPECIFIED ORGANISM; R65.20 - SEVERE SEPSIS WITHOUT SEPTIC SHOCK Status: Acute Plan: Improving issue. Mentation is appropriate, vitals stable. Plan to await culture, tailor abx as appropriate (4) ESRD (end stage renal disease) on dialysis Code(s): N18.6 - END STAGE RENAL DISEASE; Z99.2 - DEPENDENCE ON RENAL DIALYSIS Status: Chronic Plan: Dr. Zhu with nephrology consulted. Appreciate recs. Patient will receive dialysis while here. Patient received 2 PRBC during dialysis yesterday for his anemia. (5) Acute confusion Code(s): R41.0 - DISORIENTATION, UNSPECIFIED Status: Acute Plan: Resolved issue. (6) HTN (hypertension) Code(s): I10 - ESSENTIAL (PRIMARY) HYPERTENSION Status: Chronic QualifierTitle: Hypertension type: essential hypertension Qualified Code( s): I10 - Essential (primary) hypertension Plan: BP well controlled at this time. (7) Elevated troponin Code(s): R74.8 - ABNORMAL LEVELS OF OTHER SERUM ENZYMES Status: Acute Plan: Consider resolved at this time as patient has no symptom suggesting ischemic heart and trops likely elevated due to previous sepsis. <Gera Dennis - Last Filed: 03/30/18 10:44> (1) Severe sepsis Code(s): A41.9 - SEPSIS, UNSPECIFIED ORGANISM; R65.20 - SEVERE SEPSIS WITHOUT SEPTIC SHOCK Status: Acute (2) HAP (hospital-acquired pneumonia) Code(s): J18.9 - PNEUMONIA, UNSPECIFIED ORGANISM Status: Acute (3) Lactic acidosis Code(s): E87.2 - ACIDOSIS Status: Acute (4) Acute confusion Code(s): R41.0 - DISORIENTATION, UNSPECIFIED Status: Acute (5) Acute respiratory failure Code(s): J96.00 - ACUTE RESPIRATORY FAILURE, UNSP W HYPOXIA OR HYPERCAPNIA Status: Acute Qualifiers: Respiratory failure complication: hypoxia Qualified Code(s): J96.01 - Acute respiratory failure with hypoxia (6) CAD (coronary artery disease) Code(s): I25.10 - ATHSCL HEART DISEASE OF [place] CORONARY ARTERY W/O ANG PCTRS Status: Chronic Qualifiers: Coronary Disease-Associated Artery/Lesion type: [place] artery [place] vs. transplanted heart: [place] heart Associated angina: without angina Qualified Code(s): I25.10 - Atherosclerotic heart disease of [place] coronary artery without angina pectoris (7) ESRD (end stage renal disease) on dialysis Code(s): N18.6 - END STAGE RENAL DISEASE; Z99.2 - DEPENDENCE ON RENAL DIALYSIS Status: Chronic (8) H/O esophageal ulcer Code(s): Z87.19 - PERSONAL HISTORY OF OTHER DISEASES OF THE DIGESTIVE SYSTEM Status: Acute (9) Compression fracture of L1 lumbar vertebra Code(s): S32.010A - WEDGE COMPRESSION FRACTURE OF FIRST LUMBAR VERTEBRA, INIT Status: Acute Qualifiers: Encounter type: subsequent encounter Fracture type: closed Fracture healing: with routine healing Qualified Code(s): S32.010D - Wedge compression fracture of first lumbar vertebra, subsequent encounter for fracture with routine healing (10) MARTY treated with BiPAP Code(s): G47.33 - OBSTRUCTIVE SLEEP APNEA (ADULT) (PEDIATRIC) Status: Chronic (11) Anemia of chronic disease Code(s): D63.8 - ANEMIA IN OTHER CHRONIC DISEASES CLASSIFIED ELSEWHERE Status : Chronic <Lester Gongora R - Last Filed: 03/30/18 14:27> Attending Addendum - Attending Addendum Date/Time: 03/30/18 0395 I personally evaluated the patient and discussed the management with Dr. Dennis. I agree with the History, Examination, Assessment and Plan documented above with any addition or exceptions noted below. Patient reports feeling well. He continues on antibiotics for presumed sepsis 2/ 2 pneumonia. He sats are improved and he has been afebrile. WBC stable. Hopeful that cultures will result this evening and we can de-escalate antibiotic therapy. Continue therapy and wean O2 as tolerated. Anticipate discharge in next 1-2 days if continues to do well. <Lester Gongora - Last Filed: 03/30/18 14:27>
--- NOTE | 2018-03-30 11:36 | PRG ---
DATE OF SERVICE: 03/30/2018 SUBJECTIVE: This is a 62-year-old gentleman being seen for end-stage renal disease. The patient den ies any nausea, vomiting or chest pain. PHYSICAL EXAMINATION: GENERAL: Patient is awake, alert. VITAL SIGNS: Afebrile, pulse 75, breathing 16, blood pressure was 121/81. HEAD/NECK: Normocephalic. Atraumatic. EYES: EOMI. No deformity. EARS: Clear. No ulcers. NOSE: Intact. No lesions. MOUTH: Clear. No discharge. THROAT: Clear. No exudate. LUNGS: Clear. No crackles. CARDIAC: S1, S2. No rub. ABDOMEN: Benign. BS+. GENITALIA/RECTUM: Lea absent. BACK/EXTREMITIES: Edema 0+ Ulcer- NEUROLOGICAL: Alert and motor intact. SKIN: Rash- Bruise- LYMPHATICS: Edema- Ulcer- LABORATORY DATA: Show hemoglobin 10.1. ASSESSMENT AND RECOMMENDATIONS: 1. Stage 6 chronic kidney disease, continue hemodialysis. 2. Hypertension, stable. 3. Anemia, stable. 4. Medications based on glomerular filtration rate are appropriate.
[2018-03-30 15:11] LABS: Vancomycin, Trough 9.4 ug/mL
[2018-03-30] MEDS ORDERED: Vancomycin HCl 1 GM in Premix Bag 1 BAG IVPB SCH (16:00)
[2018-03-30] MEDS ORDERED: Vancomycin HCl 500 MG in Sodium Chloride 0.9% 100 ML IVPB SCH (16:00)
[2018-03-30] MEDS ORDERED: Vancomycin HCl 1.25 GM in Sodium Chloride 0.9% 250 ML 250 ML IVPB SCH (16:00)
[2018-03-30] MEDS ORDERED: HOLD VANCOMYCIN FOR LEVEL >20 FS SCH (16:00)
[2018-03-30] MEDS ORDERED: Vancomycin HCl 750 MG in Sodium Chloride 0.9% 250 ML 250 ML IVPB SCH (16:00)
[2018-03-30] MEDS: Atorvastatin Calcium 10 MG TAB PO SCH (20:49)
[2018-03-30] MEDS: Pregabalin 75 MG CAP PO SCH (20:49)
[2018-03-30] MEDS: Multivit, Therapeutic 1 TAB PO SCH (20:50)
[2018-03-30] MEDS: Cefepime 1 GM in Sodium Chloride 0.9% 100 ML IVPB SCH (21:01)
[2018-03-31] MEDS: Piperacillin/Tazobactam 2.25 GM in Sodium Chloride 0.9% 100 ML IVPB SCH ×2 (02:29→10:08)
[2018-03-31 03:49] LABS: Anion Gap 14 mmol/L (10-20); BUN (Urea Nitrogen) 14 mg/dL (8.4-25.7); Calc. Creatinine Clearance 56 mL/min (70-130); Carbon Dioxide 27 mmol/L (23-31); Chloride 102 mmol/L (98-107); Estimated GFR-MDRD 45; Glucose 84 mg/dL (80-115); Potassium 3.5 mmol/L (3.5-5.1); Sodium 139 mmol/L (136-145)
[2018-03-31 04:03] LABS: Band 7 % (5-11); Eosinophils 2 % (0-10); Hemoglobin 9.9 g/dL (14.0-18.0); Lymphocytes 32 % (21-51); MDiff Complete? YES; Mean Corpuscular Hemoglobin 30.9 pg (27.0-31.0); Mean Corpuscular Volume 96.5 fl (80.0-94.0); Mean Platelet Volume 7.7 fL (7.4-10.4); Monocytes 14 % (0-10); Neutrophil 45 % (42-75); Platelet Count 131 thou/uL (130-400); RBC Distribution Width 16.2 % (11.5-14.5); Red Blood Cell (RBC) Count 3.22 mill/uL (4.70-6.10); White Blood Cell (WBC) Count 3.2 thou/uL (4.8-10.8)
[2018-03-31] MEDS: Ascorbic Acid 500 mg Chewable Tablet PO SCH (10:09)
[2018-03-31] MEDS: Stress 600 With Zinc 1 TAB PO SCH (10:09)
[2018-03-31] MEDS: Pregabalin 75 MG CAP PO SCH ×2 (10:09→20:48)
[2018-03-31] MEDS: FLUoxetine HCl 20 MG CAP PO SCH (10:09)
[2018-03-31] MEDS: Lactinex Tablet PO SCH ×2 (10:09→20:48)
[2018-03-31] MEDS: Zinc Sulfate 220 MG CAP PO SCH (10:09)
[2018-03-31] MEDS: Heparin 5,000 UNITS/ML VIAL SC SCH ×3 (10:11→20:47)
[2018-03-31 10:14] VITALS: BMI 28.4
--- NOTE | 2018-03-31 10:20 | PDOC.FM ---
- Subjective Subjective: Patient feeling well today - Objective MAR Reviewed: Yes Vital Signs & Weight: Vital Signs (12 hours) Temp Pulse Resp BP BP Pulse Ox 03/31/18 07:30 97.9 F 90 16 127/84 95 03/31/18 04:00 98 F 87 18 125/85 98 03/31/18 01:00 97.7 F 85 18 119/78 97 Weight Admit Weight 79.424 kg Weight 82.418 kg I&O: 03/30/18 03/31/18 04/01/18 06:59 06:59 06:59 Intake Total 2900 1000 Output Total 0 3300 Balance 2900 -2300 Result Diagrams: 03/31/18 03:10 03/31/18 03:10 <Gera Dennis M - Last Filed: 03/31/18 10:25> - Objective Vital Signs & Weight: Vital Signs (12 hours) Temp Pulse Resp BP BP Pulse Ox 03/31/18 07:30 97.9 F 90 16 127/84 95 03/31/18 04:00 98 F 87 18 125/85 98 03/31/18 01:00 97.7 F 85 18 119/78 97 Weight Admit Weight 79.424 kg Weight 82.418 kg I&O: 03/30/18 03/31/18 04/01/18 06:59 06:59 06:59 Intake Total 2900 1000 Output Total 0 3300 Balance 2900 -2300 Result Diagrams: 03/31/18 03:10 03/31/18 03:10 <Lester Gongora - Last Filed: 03/31/18 10:56> Phys Exam - Physical Examination Constitutional: NAD HEENT: moist MMs Neck: no nodes, supple Respiratory: no wheezing, no rales, clear to auscultation bilateral Cardiovascular: RRR, no significant murmur, no rub Gastrointestinal: soft Musculoskeletal: no edema Neurological: non-focal, moves all 4 limbs Lymphatic: no nodes Psychiatric: normal affect Skin: no rash <Gera Dennis - Last Filed: 03/31/18 10:25> Dx/Plan (1) HAP (hospital-acquired pneumonia) Code(s): J18.9 - PNEUMONIA, UNSPECIFIED ORGANISM Status: Acute Plan: Improving at this time without need for supplemental O2, except as substitute for cpap as patient does not like hospital cpap Plan augmentin on discharge, no growth from culture in 48 hours (2) Acute respiratory failure Code(s): J96.00 - ACUTE RESPIRATORY FAILURE, UNSP W HYPOXIA OR HYPERCAPNIA Status: Acute QualifierTitle: Respiratory failure complication: hypoxia Qualified Code( s): J96.01 - Acute respiratory failure with hypoxia Plan: Resolved issue (3) Severe sepsis Code(s): A41.9 - SEPSIS, UNSPECIFIED ORGANISM; R65.20 - SEVERE SEPSIS WITHOUT SEPTIC SHOCK Status: Acute Plan: Improving issue. Mentation is appropriate, vitals stable. Plan for augmentin renally dose for pneumonia. (4) ESRD (end stage renal disease) on dialysis Code(s): N18.6 - END STAGE RENAL DISEASE; Z99.2 - DEPENDENCE ON RENAL DIALYSIS Status: Chronic Plan: Dr. Zhu with nephrology consulted. Appreciate recs. Patient will receive dialysis while here. (5) Acute confusion Code(s): R41.0 - DISORIENTATION, UNSPECIFIED Status: Acute Plan: Resolved issue. (6) HTN (hypertension) Code(s): I10 - ESSENTIAL (PRIMARY) HYPERTENSION Status: Chronic QualifierTitle: Hypertension type: essential hypertension Qualified Code( s): I10 - Essential (primary) hypertension Plan: BP well controlled at this time. (7) Elevated troponin Code(s): R74.8 - ABNORMAL LEVELS OF OTHER SERUM ENZYMES Status: Acute Plan: Consider resolved at this time as patient has no symptom suggesting ischemic heart and trops likely elevated due to previous sepsis. (8) Diarrhea Code(s): R19.7 - DIARRHEA, UNSPECIFIED Status: Acute Plan: Patient had loose stool x5 yesterday and has prior history of c. diff. Plan to obtain c diff screen. <Gera Dennis M - Last Filed: 03/31/18 10:25> (1) Severe sepsis Code(s): A41.9 - SEPSIS, UNSPECIFIED ORGANISM; R65.20 - SEVERE SEPSIS WITHOUT SEPTIC SHOCK Status: Acute (2) HAP (hospital-acquired pneumonia) Code(s): J18.9 - PNEUMONIA, UNSPECIFIED ORGANISM Status: Acute (3) Lactic acidosis Code(s): E87.2 - ACIDOSIS Status: Acute (4) Acute confusion Code(s): R41.0 - DISORIENTATION, UNSPECIFIED Status: Acute (5) Acute respiratory failure Code(s): J96.00 - ACUTE RESPIRATORY FAILURE, UNSP W HYPOXIA OR HYPERCAPNIA Status: Acute Qualifiers: Respiratory failure complication: hypoxia Qualified Code(s): J96.01 - Acute respiratory failure with hypoxia (6) CAD (coronary artery disease) Code(s): I25.10 - ATHSCL HEART DISEASE OF [place] CORONARY ARTERY W/O ANG PCTRS Status: Chronic Qualifiers: Coronary Disease-Associated Artery/Lesion type: [place] artery [place] vs. transplanted heart: [place] heart Associated angina: without angina Qualified Code(s): I25.10 - Atherosclerotic heart disease of [place] coronary artery without angina pectoris (7) ESRD (end stage renal disease) on dialysis Code(s): N18.6 - END STAGE RENAL DISEASE; Z99.2 - DEPENDENCE ON RENAL DIALYSIS Status: Chronic (8) H/O esophageal ulcer Code(s): Z87.19 - PERSONAL HISTORY OF OTHER DISEASES OF THE DIGESTIVE SYSTEM Status: Acute (9) Compression fracture of L1 lumbar vertebra Code(s): S32.010A - WEDGE COMPRESSION FRACTURE OF FIRST LUMBAR VERTEBRA, INIT Status: Acute Qualifiers: Encounter type: subsequent encounter Fracture type: closed Fracture healing: with routine healing Qualified Code(s): S32.010D - Wedge compression fracture of first lumbar vertebra, subsequent encounter for fracture with routine healing (10) MARTY treated with BiPAP Code(s): G47.33 - OBSTRUCTIVE SLEEP APNEA (ADULT) (PEDIATRIC) Status: Chronic (11) Anemia of chronic disease Code(s): D63.8 - ANEMIA IN OTHER CHRONIC DISEASES CLASSIFIED ELSEWHERE Status : Chronic <Lester Gongora - Last Filed: 03/31/18 10:56> Attending Addendum - Attending Addendum Date/Time: 03/31/18 1232 I personally evaluated the patient and discussed the management with Dr. Dennis. I agree with the History, Examination, Assessment and Plan documented above with any addition or exceptions noted below. Patient feeling improved. Sats ok without supplemental O2, and he feels well. No fevers, and WBC normal. Will de-escalate to oral abx today for presumed pneumonia. He has had development of diarrhea, and is at risk for Cdiff. Are checking Cdiff screen. If negative, can discharge home later today. If positive , he has no evidence of severe infection, normal WBC, and no suggestion of megacolon, and therefore can still be discharged with oral Vancocin therapy. Await results before discharge. <Lester Gongora - Last Filed: 03/31/18 10:56>
--- NOTE | 2018-03-31 10:35 | PRG ---
DATE OF SERVICE: 03/31/2018 SUBJECTIVE: This is a 62-year-old gentleman being seen for end-stage renal disease. The patient den ies any nausea, vomiting or chest pain. PHYSICAL EXAMINATION: GENERAL: Patient is awake, alert. VITAL SIGNS: Afebrile, pulse 90, breathing 16, blood pressure 127/84. OBJECTIVE: See above. Awake, alert, in no acute distress. GENERAL APPEARANCE AND MENTAL STATUS: Fair. HEAD/NECK: Normocephalic. Atraumatic. EYES: EOMI. No deformity. EARS: Clear. No ulcers. NOSE: Intact. No lesions. MOUTH: Clear. No discharge. THROAT: Clear. No exudate. LUNGS: Clear. No crackles. CARDIAC: S1, S2. No rub. ABDOMEN: Benign. BS+. GENITALIA/RECTUM: Lea absent. BACK/EXTREMITIES: Edema 0+ Ulcer- NEUROLOGICAL: Alert and motor intact. SKIN: Rash- Bruise- LYMPHATICS: Edema- Ulcer- LABORATORY DATA: Show hemoglobin 9.9. ASSESSMENT AND RECOMMENDATIONS: 1. Stage 6 chronic kidney disease, continue hemodialysis. 2. Hypertension, stable. 3. Anemia, stable. 4. Medications based on glomerular filtration rate are appropriate. 5. Secondary hyperparathyroidism. Low phosphorus diet.
[2018-03-31] MEDS: Vancomycin HCl 25 MG/ML Oral PO SCH (18:37)
[2018-03-31] MEDS: Multivit, Therapeutic 1 TAB PO SCH (20:48)
[2018-03-31] MEDS: Atorvastatin Calcium 10 MG TAB PO SCH (20:48)
[2018-04-01] MEDS: Vancomycin HCl 25 MG/ML Oral PO SCH ×3 (00:13→11:48)
[2018-04-01 04:55] LABS: Band 1 % (5-11); Eosinophils 9 % (0-10); Hemoglobin 10.3 g/dL (14.0-18.0); Lymphocytes 20 % (21-51); MDiff Complete? YES; Mean Corpuscular HGB CONC 32.4 g/dL (32.0-36.0); Mean Corpuscular Hemoglobin 31.5 pg (27.0-31.0); Mean Corpuscular Volume 97.4 fl (80.0-94.0); Mean Platelet Volume 8.4 fL (7.4-10.4); Monocytes 26 % (0-10); Neutrophil 44 % (42-75); Platelet Count 122 thou/uL (130-400); RBC Distribution Width 15.7 % (11.5-14.5); Red Blood Cell (RBC) Count 3.28 mill/uL (4.70-6.10); White Blood Cell (WBC) Count 3.5 thou/uL (4.8-10.8)
[2018-04-01 05:03] LABS: Anion Gap 17 mmol/L (10-20); BUN (Urea Nitrogen) 21 mg/dL (8.4-25.7); Calc. Creatinine Clearance 36 mL/min (70-130); Calcium 10.2 mg/dL (7.8-10.44); Carbon Dioxide 23 mmol/L (23-31); Chloride 104 mmol/L (98-107); Estimated GFR-MDRD 27; Glucose 88 mg/dL (80-115); Potassium 3.7 mmol/L (3.5-5.1); Sodium 140 mmol/L (136-145)
[2018-04-01] MEDS: Zinc Sulfate 220 MG CAP PO SCH (08:29)
[2018-04-01] MEDS: Stress 600 With Zinc 1 TAB PO SCH (08:29)
[2018-04-01] MEDS: Lactinex Tablet PO SCH (08:29)
[2018-04-01] MEDS: Ascorbic Acid 500 mg Chewable Tablet PO SCH (08:30)
[2018-04-01] MEDS: FLUoxetine HCl 20 MG CAP PO SCH (08:30)
[2018-04-01] MEDS: Heparin 5,000 UNITS/ML VIAL SC SCH (08:30)
[2018-04-01] MEDS: Pregabalin 75 MG CAP PO SCH (08:39)
[2018-04-01] MEDS ORDERED: Amoxicillin/Potassium Clav 500 MG TAB PO SCH (09:00)
--- NOTE | 2018-04-01 09:25 | PRG ---
DATE OF SERVICE: 04/01/2018 SUBJECTIVE: A 62-year-old gentleman being seen for end-stage renal disease. The patient denies any nausea, vomiting or chest pain. PHYSICAL EXAMINATION: GENERAL: Patient is awake, alert. VITAL SIGNS: Afebrile, pulse 91, breathing 16, blood pressure 126/77. OBJECTIVE: See above. Awake, alert, in no acute distress. GENERAL APPEARANCE AND MENTAL STATUS: Fair. HEAD/NECK: Normocephalic. Atraumatic. EYES: EOMI. No deformity. EARS: Clear. No ulcers. NOSE: Intact. No lesions. MOUTH: Clear. No discharge. THROAT: Clear. No exudate. LUNGS: Clear. No crackles. CARDIAC: S1, S2. No rub. ABDOMEN: Benign. BS+. GENITALIA/RECTUM: Lea absent. BACK/EXTREMITIES: Edema 0+ Ulcer- NEUROLOGICAL: Alert and motor intact. SKIN: Rash- Bruise- LYMPHATICS: Edema- Ulcer- LABORATORY: Hemoglobin 10.3. ASSESSMENT AND RECOMMENDATIONS: 1. Stage 6 chronic kidney disease. We will plan dialysis. 2. Hypertension. 3. Anemia, stable. 4. Medication based on glomerular filtration rate are appropriate.
--- NOTE | 2018-04-01 09:32 | PDOC.FM ---
- Subjective Subjective: Patient feeling better and that his diarrhea has improved. He denies fever, chills, pain. - Objective MAR Reviewed: Yes Vital Signs & Weight: Vital Signs (12 hours) Temp Pulse Resp BP Pulse Ox 04/01/18 04:00 96.3 F L 91 18 126/77 97 Weight Admit Weight 79.424 kg Weight 79.7 kg I&O: 03/31/18 04/01/18 04/02/18 06:59 06:59 06:59 Intake Total 1000 240 Output Total 3300 Balance -2300 240 Result Diagrams: 04/01/18 04:22 04/01/18 04:22 <Gera Dennis M - Last Filed: 04/01/18 09:30> - Objective Vital Signs & Weight: Vital Signs (12 hours) Temp Pulse Resp BP Pulse Ox 04/01/18 08:00 97.5 F L 74 18 114/72 91 L 04/01/18 04:00 96.3 F L 91 18 126/77 97 Weight Admit Weight 79.424 kg Weight 79.7 kg I&O: 03/31/18 04/01/18 04/02/18 06:59 06:59 06:59 Intake Total 1000 240 250 Output Total 3300 Balance -2300 240 250 Result Diagrams: 04/01/18 04:22 04/01/18 04:22 <Lester Gongora - Last Filed: 04/01/18 14:25> Phys Exam - Physical Examination Constitutional: NAD HEENT: moist MMs Neck: no nodes, supple Respiratory: no wheezing, no rales, wheezing present Cardiovascular: RRR 1/6 systolic murmur Gastrointestinal: soft Musculoskeletal: no edema Neurological: non-focal, moves all 4 limbs Lymphatic: no nodes Psychiatric: normal affect Skin: no rash <Gera Dennis M - Last Filed: 04/01/18 09:30> Dx/Plan (1) HAP (hospital-acquired pneumonia) Code(s): J18.9 - PNEUMONIA, UNSPECIFIED ORGANISM Status: Acute Plan: Improving at this time without need for supplemental O2, except as substitute for cpap as patient does not like hospital cpap Continue augmentin (2) Acute respiratory failure Code(s): J96.00 - ACUTE RESPIRATORY FAILURE, UNSP W HYPOXIA OR HYPERCAPNIA Status: Acute QualifierTitle: Respiratory failure complication: hypoxia Qualified Code( s): J96.01 - Acute respiratory failure with hypoxia Plan: Resolved issue (3) Severe sepsis Code(s): A41.9 - SEPSIS, UNSPECIFIED ORGANISM; R65.20 - SEVERE SEPSIS WITHOUT SEPTIC SHOCK Status: Acute Plan: Improving issue. Mentation is appropriate, vitals stable. Plan for augmentin renally dose for pneumonia. (4) ESRD (end stage renal disease) on dialysis Code(s): N18.6 - END STAGE RENAL DISEASE; Z99.2 - DEPENDENCE ON RENAL DIALYSIS Status: Chronic Plan: Dr. Zhu with nephrology consulted. Appreciate recs. Patient will receive dialysis today at outpatient discharge. (5) Acute confusion Code(s): R41.0 - DISORIENTATION, UNSPECIFIED Status: Acute Plan: Resolved issue. (6) HTN (hypertension) Code(s): I10 - ESSENTIAL (PRIMARY) HYPERTENSION Status: Chronic QualifierTitle: Hypertension type: essential hypertension Qualified Code( s): I10 - Essential (primary) hypertension Plan: BP well controlled at this time. (7) Diarrhea Code(s): R19.7 - DIARRHEA, UNSPECIFIED Status: Acute Plan: C diff positive. Started on vanc. Started on probiotic for home. It is improving at this time. (8) Elevated troponin Code(s): R74.8 - ABNORMAL LEVELS OF OTHER SERUM ENZYMES Status: Acute Plan: Consider resolved at this time as patient has no symptom suggesting ischemic heart and trops likely elevated due to previous sepsis. <Gera Dennis M - Last Filed: 04/01/18 09:30> (1) Severe sepsis Code(s): A41.9 - SEPSIS, UNSPECIFIED ORGANISM; R65.20 - SEVERE SEPSIS WITHOUT SEPTIC SHOCK Status: Acute (2) HAP (hospital-acquired pneumonia) Code(s): J18.9 - PNEUMONIA, UNSPECIFIED ORGANISM Status: Acute (3) Lactic acidosis Code(s): E87.2 - ACIDOSIS Status: Acute (4) Acute confusion Code(s): R41.0 - DISORIENTATION, UNSPECIFIED Status: Acute (5) Acute respiratory failure Code(s): J96.00 - ACUTE RESPIRATORY FAILURE, UNSP W HYPOXIA OR HYPERCAPNIA Status: Acute Qualifiers: Respiratory failure complication: hypoxia Qualified Code(s): J96.01 - Acute respiratory failure with hypoxia (6) CAD (coronary artery disease) Code(s): I25.10 - ATHSCL HEART DISEASE OF [place] CORONARY ARTERY W/O ANG PCTRS Status: Chronic Qualifiers: Coronary Disease-Associated Artery/Lesion type: [place] artery [place] vs. transplanted heart: [place] heart Associated angina: without angina Qualified Code(s): I25.10 - Atherosclerotic heart disease of [place] coronary artery without angina pectoris (7) ESRD (end stage renal disease) on dialysis Code(s): N18.6 - END STAGE RENAL DISEASE; Z99.2 - DEPENDENCE ON RENAL DIALYSIS Status: Chronic (8) H/O esophageal ulcer Code(s): Z87.19 - PERSONAL HISTORY OF OTHER DISEASES OF THE DIGESTIVE SYSTEM Status: Acute (9) Compression fracture of L1 lumbar vertebra Code(s): S32.010A - WEDGE COMPRESSION FRACTURE OF FIRST LUMBAR VERTEBRA, INIT Status: Acute Qualifiers: Encounter type: subsequent encounter Fracture type: closed Fracture healing: with routine healing Qualified Code(s): S32.010D - [place] compression fracture of first lumbar vertebra, subsequent encounter for fracture with routine healing (10) MARTY treated with BiPAP Code(s): G47.33 - OBSTRUCTIVE SLEEP APNEA (ADULT) (PEDIATRIC) Status: Chronic (11) Anemia of chronic disease Code(s): D63.8 - ANEMIA IN OTHER CHRONIC DISEASES CLASSIFIED ELSEWHERE Status : Chronic <Lester Gongora - Last Filed: 04/01/18 14:25> Attending Addendum - Attending Addendum Date/Time: 04/01/18 7011 I personally evaluated the patient and discussed the management with Dr. Dennis. I agree with the History, Examination, Assessment and Plan documented above with any addition or exceptions noted below. Patient doing well today and denies complaints. His breathing is at baseline. He continues to be afebrile with normal WBC. He will be discharged for treatment of PNA with Augmentin. His Cdiff screen did come back positive for Cdiff toxin. He is on oral Vancocin and has had improvement in diarrhea. He will be discharged home today with early follow up with PCP. He will have HD at outpatient dialysis center this afternoon. <Lester Gongora - Last Filed: 04/01/18 14:25>
--- NOTE | 2018-04-01 12:24 | DIS-2 ---
DATE OF ADMISSION: 03/28/2018 DATE OF DISCHARGE: 04/01/2018 ADMITTING ATTENDING: Dr. Lester Gongora. DISCHARGE ATTENDING: Dr. Lester Gongora. RESIDENT: Dr. Gera Dennis. CONSULT: Dr. Larry Zhu, Nephrology. PROCEDURE: Chest x-ray done on 03/28/2018. IMPRESSION: Increased opacification in the left lung base suggestive of infiltrate or possible atelectasis with effusion. PRIMARY DIAGNOSES: 1. Severe sepsis. 2. Hospital-acquired pneumonia. 3. Acute respiratory failure. 4. End-stage renal failure on dialysis. 5. Clostridium difficile, chronically colonized. SECONDARY DIAGNOSES: 1. Lactic acidosis. 2. Acute confusion. 3. Coronary artery disease. 4. History of esophageal ulcer. 5. Compression fracture of L1 lumbar vertebrae. 6. Obstructive sleep apnea treated with BiPAP. 7. Anemia of chronic disease. 8. Elevated troponin. DISCHARGE MEDICATIONS: 1. Augmentin 500 mg p.o. daily for 4 days. 2. Lactobacillus probiotic 1 capsule daily. 3. Vancomycin 125 mg p.o. q.6 hours for 9 days. 4. Aspirin 81 mg p.o. daily. 5. Zofran 4 mg tablet p.o. every 8 hours for nausea as needed. 6. Trazodone 50 mg p.o. at bedtime. 7. Atorvastatin 10 mg p.o. at bedtime. 8. Fluoxetine 40 mg p.o. daily. 9. Niacin 1000 mg p.o. at bedtime. 10. Multivitamin 1 tablet p.o. at bedtime. 11. Pantoprazole 40 mg p.o. daily. 12. Lyrica 75 mg p.o. b.i.d. 13. Zinc 220 mg p.o. daily. 14. Vitamin B complex 1 tablet p.o. daily. HISTORY OF PRESENT ILLNESS AND HOSPITAL COURSE: This is a 62-year-old male with past medical history of end-stage renal on dialysis, CAD with 5-vessel CABG and CHF who presented with chills and nausea that has been going on for 1 day. It was associated with him having body aches and increased somnolence. He went to dialysis, but then they sent him to [facility] due to concern for his current state of health. When he arrived at the ER, he was given 1 gram of calcium gluconate, two bolus of 500 mL normal saline, Zosyn 4.5 mg, vancomycin dose at 15 mg/kg and 1000 mg of Tylenol. The patient was admitted from the ER with diagnosis of severe sepsis, having tachycardia, tachypnea, 13% bands and presumed source of infection in the left lower lobe infiltrate and with altered mentation. He was admitted to the telemetry floor, he received dialysis that same night. When he was seen later in the morning, much of his somnolence and confusion had resolved, he was afebrile and did not require any supplemental oxygen at that point. Over next few days, his problem continued to resolve. Cultures did not grow out any bacteria, so it was decided to narrow his spectrum to Augmentin at that point and he received a day of Augmentin prior to discharge and has continued to have no fever and maintain good oxygenation on room air while awake. As for his MARTY, the patient did not tolerate the feeling of hospital CPAP machine, he received nasal cannula oxygen at night and he regularly maintained his saturation above 97%. As for his respiratory failure, it had resolved later in the morning of admission and he did not require any supplemental oxygen. As for his end-stage renal disease, he received dialysis successfully with Dr. Zhu. As for the C. diff, he had previous history of C. diff infection per history provided by the . Two days before discharge, he complained about diarrhea. A C. diff study was taken at that time that came back to be positive. He was started on oral vancomycin 1 day before discharge and on the day of discharge, the patient states that his diarrhea seems to have already started to improve. As for his other chronic issues in the secondary diagnoses, they were stable during his stay here and no changes were made to his medication for those issues. On the day of discharge, the patient voices understanding that he will go to dialysis today and that he will complete the course of antibiotics for both pneumonia and vancomycin. DISPOSITION: Stable. DISCHARGE INSTRUCTIONS: 1. Location: To outpatient dialysis and then to home. 2. Diet: Renal, heart healthy diet. 3. Activity: As tolerated. 4. Followup: Follow up with PCP, Dr. Tejinder Oneil in 1-2 weeks. [facility]ITALFel[facility]
[2018-04-01 14:31] VITALS: BP 109/72; TEMP 98.2
== END 2018-04-01 14:32 | disposition home or self-care (01) | DRG 871 ==
LOC: ERS 15:14 → 2NO 17:57
PROVIDERS: ADMIT Student in an Organized Health Care Education/Training Program; ATTEND Student in an Organized Health Care Education/Training Program
PROC: 30233N1 Transfusion of Nonautologous Red Blood Cells into Peripheral Vein, Percutaneous Approach (ICD-10-PCS; principal; 2018-03-29)
DX: A41.9 Sepsis, unspecified organism (principal); J18.9 Pneumonia, unspecified organism; N18.6 End stage renal disease; J96.01 Acute respiratory failure with hypoxia; E87.2 Acidosis; A04.72 Enterocolitis due to Clostridium difficile, not specified as recurrent; R65.20 Severe sepsis without septic shock; Z99.2 Dependence on renal dialysis; I25.10 Atherosclerotic heart disease of native coronary artery without angina pectoris; G47.33 Obstructive sleep apnea (adult) (pediatric); D63.1 Anemia in chronic kidney disease; I50.9 Heart failure, unspecified; E87.5 Hyperkalemia; E83.52 Hypercalcemia; R74.8 Abnormal levels of other serum enzymes; M48.56XD Collapsed vertebra, not elsewhere classified, lumbar region, subsequent encounter for fracture with routine healing; Z95.1 Presence of aortocoronary bypass graft; Z90.49 Acquired absence of other specified parts of digestive tract
CPT/HCPCS: 36415; 36430; 71045; 80048; 80053; 80202; 82553; 83605; 83880; 84145; 84484; 85025; 86706; 86850; 86900; 86901; 87040; 87324; 87340; 87449; 87493; 90935; 93005; 96361; 96365; 96367; 96375; A4216; G0257; G8981-GP-CM; G8982-GP-CK; J0690; J0692; J1644; J2543; J3370; J7050; P9016

== ENCOUNTER 2018-10-13 15:11 | Inpatient (IN) | payer MEDICARE, BC ==
[2018-10-13 16:09] LABS: Hemoglobin 11.2 g/dL (14.0-18.0); Mean Corpuscular Hemoglobin 26.4 pg (27.0-31.0); Mean Corpuscular Volume 94.4 fL (78.0-98.0); Mean Platelet Volume 10.5 fL (7.4-10.4); Platelet Count 111 thou/uL (130-400); RBC Distribution Width 19.1 % (11.5-14.5); Red Blood Cell (RBC) Count 4.23 mill/uL (4.70-6.10); White Blood Cell (WBC) Count 4.2 thou/uL (4.8-10.8)
[2018-10-13 16:29] LABS: ALT (SGPT) 289 U/L (8-55); AST (SGOT) 331 U/L (5-34); Albumin 3.9 g/dL (3.4-4.8); Alkaline Phosphatase 189 U/L (40-150); Anion Gap 23 mmol/L (10-20); BUN (Urea Nitrogen) 54 mg/dL (8.4-25.7); Bilirubin, Total 0.9 mg/dL (0.2-1.2); CK (CPK) 85 U/L (30-200); Calc. Creatinine Clearance 0 mL/min (70-130); Calcium 9.4 mg/dL (7.8-10.44); Carbon Dioxide 21 mmol/L (23-31); Chloride 93 mmol/L (98-107); Estimated GFR-MDRD 11; Globulin 3.6 g/dL (2.4-3.5); Glucose 78 mg/dL (80-115); Potassium 5.1 mmol/L (3.5-5.1); Protein, Total 7.5 g/dL (5.8-8.1); Sodium 132 mmol/L (136-145)
[2018-10-13 16:47] LABS: Anisocytosis SLIGHT = 6-15 cells (100X) (0-5/hpf); Band 13 % (5-11); Hypochromia SLIGHT = 6-15 cells (100X) (0-5/hpf); Lymphocytes 7 % (21-51); MDiff Complete? YES; Monocytes 3 % (0-10); Neutrophil 77 % (42-75); PLT Morphology Comment Appears Decreased
[2018-10-13] MEDS ORDERED: Piperacillin/Tazobactam 4.5 GM VIAL ONE (16:57)
[2018-10-13 17:00] LABS: CKMB 25.9 ng/mL (0-6.6)
--- NOTE | 2018-10-13 17:05 | RAD ---
CHEST 1 VIEW: Date: 10/13/18 HISTORY: Chest pain. COMPARISON: Chest radiograph dated 03/28/18. FINDINGS: Small effusions. Heart size enlarged. Mild pulmonary venous congestion. IMPRESSION: Cardiomegaly and edema, as well as effusions, concerning for congestive heart failure. POS: [facility]
--- NOTE | 2018-10-13 19:26 | ULT ---
RIGHT UPPER QUADRANT ULTRASOUND 10/13/18 PROVIDED CLINICAL HISTORY: Right upper quadrant pain. FINDINGS: Comparison 02/11/15. Liver demonstrates no evidence for mass or intrahepatic biliary ductal dilatation. The common duct is not dilated. The gallbladder is not visualized compatible with provided clinical history of prior ch olecystectomy. Right kidney demonstrates no evidence for hydronephrosis or mass. there is prominent i ncreased echogenicity of the right kidney compatible with medical renal disease. The visualized porti ons of the pancreas and IVC appear normal. Free fluid is seen within the abdomen as well as within th e right pleural space. IMPRESSION: No evidence for an acute process. Chronic findings as above. POS: [facility]
[2018-10-13 19:53] LABS: Troponin I 2.215 ng/mL (< 0.028)
[2018-10-13] MEDS ORDERED: diphenhydrAMINE 50 MG/ML VIAL ONE (19:57)
[2018-10-13] MEDS ORDERED: methylPREDNISolone Sod Succ/PF 125 MG/2 ML VIAL ONE (19:57)
[2018-10-13] MEDS ORDERED: Famotidine/PF 20 mg/2ml Vial ONE (19:57)
[2018-10-13] MEDS ORDERED: Water For Inject, Bacteriostat 30 ML ONE (19:57)
--- NOTE | 2018-10-13 20:02 | PDOC.FPRHP ---
- History of Present Illness Chief Complaint: Hypotension History of Present Illness: This is a 63 yo male with a pmh of HTN, CAD s/p CABG, ESRD on home HD, HFrEF who presents to the ED from Dr. Santana's office. At his office, pt was undergoing an echocardiogram when he was found to be hypotensive with systolic BP in the 80s. Pt denies dizziness, lightheadedness, SOB, CP, syncope, or changes in mental status. at bedsides states that he was doing well today, moving in his electric scooter, which is a good day for him. During our discussion with , she raised some question of moving to palliative care vs hospice. Last dialysis was Wednesday night. - Allergies/Adverse Reactions Allergies Allergy/AdvReac Type Severity Reaction Status Date / Time Iodinated Contrast- Oral and Allergy Hives Verified 04/21/18 17:48 IV Dye [Iodinated Contrast Media - IV Dye] levofloxacin [From Levaquin] Allergy heel pain Verified 04/21/18 17:49 - Home Medications Medication Instructions Recorded Confirmed Type Atorvastatin Calcium [Lipitor] 10 mg PO HS 02/02/18 10/13/18 History Niacin (Inositol Niacinate) 1,000 mg PO HS 02/02/18 10/13/18 History [Niacin] Ondansetron HCl [Zofran] 4 mg PO Q8HR PRN 02/02/18 10/13/18 History Pantoprazole [Protonix] 40 mg PO DAILY 02/02/18 10/13/18 History traZODone HCl [Trazodone HCl] 50 mg PO HS PRN 02/02/18 10/13/18 History Vitamin B Complex 1 each PO DAILY 02/28/18 10/13/18 History Zinc 100 mg PO BID 02/28/18 10/13/18 History Aspirin [Aspirin Chewable Tablet] 81 mg PO DAILY tab 04/01/18 10/13/18 Rx Pregabalin [Lyrica] 150 mg PO BID 04/21/18 10/13/18 History Ascorbic Acid [Vitamin C] 500 mg PO DAILY 10/13/18 10/13/18 History Epoetin Ramez [Epogen] 15,000 unit IJ Q3DAYS 10/13/18 10/13/18 History Ibuprofen 400 mg PO Q6HR PRN 10/13/18 10/13/18 History Midodrine HCl 5 mg PO TID 10/13/18 10/13/18 History Vortioxetine Hydrobromide 10 mg PO DAILY 10/13/18 10/13/18 History [Brintellix] traMADol HCl [Tramadol HCl] 50 mg PO Q6H PRN 10/13/18 10/13/18 History - History PMHx: ESRD on home HD, HTN, CAD s/p CABG, HLD PSHx: cabg, left arm shunt FHx: noncontributory Social: Denies ZHENG - Review of Systems General: denies: fever/chills, weight/appetite/sleep changes Eyes: denies: eye pain ENT: denies: nasal congestion Respiratory: denies: cough, congestion, shortness of breath Cardiovascular: reports: edema. denies: chest pain, palpitation Gastrointestinal: denies: nausea, vomiting, diarrhea, constipation Skin: denies: rashes, lesions Musculoskeletal: denies: pain, tenderness Neurological: denies: numbness, syncope, seizure Psychological: denies: anxiety, depression - Vital signs BP: 91/50 HR: 66 RR: 17 Tmax: 98.2 Pox: 100% on 2l NC Wt: 82 kg - Physical Exam Constitutional: NAD, well developed, other (awake, alert, oriented to person and place, not time) HEENT: normocephalic and atraumatic, MMM Neck: supple, trachea midline Chest: no-tender to palpation Heart: RRR, normal S1/S2, pulses present, other (+2 pitting edema to knee) Lungs: good air movement, other (Crackles at bases bilaterally) Abdomen: soft, non-tender, bowel sounds present, no masses/distention Musculoskeletal: normal structure Neurological: no focal deficit, normal sensation Skin: no rash/lesions Heme/Lymphatic: no unusual bruising or bleeding Psychiatric: normal mood and affect, good judgment and insight FMR H&P: Results - Labs Result Diagrams: 10/13/18 15:49 10/13/18 15:49 Lab results: WBC 4.2 thou/uL (4.8-10.8) L 10/13/18 15:49 Hgb 11.2 g/dL (14.0-18.0) L 10/13/18 15:49 Hct 39.9 % (42.0-52.0) L 10/13/18 15:49 MCV 94.4 fL (78.0-98.0) 10/13/18 15:49 Plt Count 111 thou/uL (130-400) L 10/13/18 15:49 Band Neuts % (Manual) 13 % (5-11) H 10/13/18 15:49 Sodium 132 mmol/L (136-145) L 10/13/18 15:49 Potassium 5.1 mmol/L (3.5-5.1) 10/13/18 15:49 Chloride 93 mmol/L (98-107) L 10/13/18 15:49 Carbon Dioxide 21 mmol/L (23-31) L 10/13/18 15:49 BUN 54 mg/dL (8.4-25.7) H 10/13/18 15:49 Creatinine 5.37 mg/dL (0.7-1.3) H 10/13/18 15:49 Glucose 78 mg/dL (80-115) L 10/13/18 15:49 Lactic Acid 3.7 mmol/L (0.5-2.2) H 10/13/18 15:49 Calcium 9.4 mg/dL (7.8-10.44) 10/13/18 15:49 Total Bilirubin 0.9 mg/dL (0.2-1.2) 10/13/18 15:49 AST 331 U/L (5-34) H 10/13/18 15:49 ALT 289 U/L (8-55) H 10/13/18 15:49 Alkaline Phosphatase 189 U/L (40-150) H 10/13/18 15:49 Creatine Kinase 85 U/L (30-200) 10/13/18 15:49 CK-MB (CK-2) 25.9 ng/mL (0-6.6) H* 10/13/18 15:49 B-Natriuretic Peptide 1064.4 pg/mL (0-100) H 10/13/18 15:49 Serum Total Protein 7.5 g/dL (5.8-8.1) 10/13/18 15:49 Albumin 3.9 g/dL (3.4-4.8) 10/13/18 15:49 - EKG Interpretation EKG: NSR, first degree block - Radiology Interpretation Chest x-ray Status: report reviewed by me (cardiomegaly, pleural effussions, mild pulmonary congestion) US - abdomen Status: report reviewed by me (RUQ no acute process, free fluid seen in abdomen) CT scan - abdomen Status: report reviewed by me (and pelvis, bilateral pleural effusion, free intraperitoneal fluid and anasarca. Stable prominence of the diverted right ureter with assocaited surrounding fat stranding. No evidence for hydronephrosis Interval increase in size in lobulated partially calcified soft tissue mass within the anterior low pelvis) FMR H&P: A/P - Problem List (1) HFrEF (heart failure with reduced ejection fraction) Current Visit: Yes Status: Acute Code(s): I50.20 - UNSPECIFIED SYSTOLIC ( CONGESTIVE) HEART FAILURE (2) CAD (coronary artery disease) Current Visit: No Status: Chronic Code(s): I25.10 - ATHSCL HEART DISEASE OF [place] CORONARY ARTERY W/O ANG PCTRS Qualifiers: Coronary Disease-Associated Artery/Lesion type: [place] artery [place] vs. transplanted heart: [place] heart Associated angina: without angina Qualified Code(s): I25.10 - Atherosclerotic heart disease of [place] coronary artery without angina pectoris (3) ESRD (end stage renal disease) on dialysis Current Visit: No Status: Chronic Code(s): N18.6 - END STAGE RENAL DISEASE; Z99.2 - DEPENDENCE ON RENAL DIALYSIS (4) HTN (hypertension) Current Visit: No Status: Chronic Code(s): I10 - ESSENTIAL (PRIMARY) HYPERTENSION Qualifiers: Hypertension type: essential hypertension Qualified Code(s): I10 - Essential (primary) hypertension - Plan This is a 63 yo male with a pmh of HTN, CAD s/p CABG, ESRD on home HD, HFrEF Hypotension -Admit to tele obs -Pt appears near baseline -We will monitor overnight Bandemia -Continue vancomycin in dialysis -pending procal -WBC 4.2 Elevated troponins -Initial 1.6, baseline .2, continue to trend -EKG showed no st changes -Pt received aspirin in ED HFrEF -Echo shows EF of 15-20% CAD -Continue home meds ESRD -Consult nephrology in the morning HTN -Pt has not required medications in years, will monitor Consult palliative in the morning Code: DNAR Prophylaxis: heparin Family: at bedside and assessment and plan discussed with her Disposition: home in 1-2 days FMR H&P: [place] - Pertinent history 63M who presents from Cardiologists office after being found to be hypotensive on doppler in the office. He was at a f/u appointment s/p TTE done last week. Echo shows EF of 15-20% with severe paradoxical septal motion and moderate aortic stenosis. Review of records shows he has been in and out LTAC facilites over the last year. Pt denies dizziness, lightheadedness, SOB, CP, syncope, or changes in mental status PMH: chronic inflammatory demyelinating polyneuropathy, HTN, CAD s/p CABG and stent, ESRD on HD at home four days per week, MARTY Received zosyn, 500cc on NS, ASA, and methylprednisolone in ED - Pertinent findings Gen: A&Ox3 CV: RRR, no murmurs Pulm: crackles at bilateral bases Ext: pitting edema to mid [place] bilaterally WBC: 4.2 Na: 132 K: 5.1 BUN/Cr: 54/5.37 LA: 3.7 AST/ALT: 331/289 trop: 1.636 CK-MB: 25.9 BNP: 1064 CTA chest: no PE; possible PNA RUQ US: no acute findings CT abd/pelvis: bilateral pleural effusions - Plan Date/Time: 10/13/181955 I, Tommy Goldstein, have evaluated this patient and agree with findings/plan as outlined by international project manager resident. Pertinent changes/additions are listed here. Hypotension with concern for infection: mentation is at baseline. Given his left shift we will continue the zosyn from the ED, and we will add vancomycin. Procalcitonin is pending. He has a history of HCAP HFrEF: TTE done last week shows severely reduced EF. Exam consistent with mild fluid overload. Needs palliative care/hospice consult Transaminitis: LFTs in March are normal. Will check hepatitis panel and trend throughout hospitalization Elevated troponin 2/2 demand ischemia: Cardiology is aware of patient and believes this is due to demand ischemia. Anticoagulate with heparin. Continue to trend with repeat EKG Addendum - Attending - Attending Attestation Date/Time: 10/13/182229 I personally evaluated the patient and discussed the management with Dr. Serna /Triston. I agree with the History, Examination, Assessment and Plan documented above with any addition or exceptions noted below. Patient with new diagnosis of HFrEF sent her by his director of revenue due to persistent hypotension. Per , patients blood pressures have been running lower for the last 1-2 weeks with associated malaise and anorexia. Has history of ESRD on home HD and has been unable to remove as much fluid due to low BP. He was seen at cardiology office 1 week ago and TTE obtained which showed EF 15-20%. He was started on midodrine to assst with blood pressure and it did not lewve to improvement. It was recommended today by his director of revenue to be admitted for evaluation of this refractory hypotension. On arrival, BP was 80/ 50. Labs show normal WBC but with left shift and bandemia. No overt evidence for infection, but PCT is mildly elevated. He also has seemingly new onset transaminitis that may be due to hypoperfusion, U/S obtained. Lactate initially elevated but downtrending on repeat. Finally, he has elevated troponin and CKMB but absence of EKG changes and chest pain, and Dr. Santana believes it is more a demand ischemia picture. Patient will be admitted for further work, continue IV abx and await culture results. At this time I do not anticipate his hypotension to be due to septic shock, but consider cardiogenic nature or related to adrenal insufficiency, will check AM cortisol. Cardiology to further evaluate in hospital setting, and will consult palliative care in AM. Nephro will be consulted for mgmt of his ESRD.
--- NOTE | 2018-10-13 20:22 | CT ---
CT OF THE ABDOMEN AND PELVIS WITHOUT CONTRAST 10/13/18 PROVIDED CLINICAL HISTORY: Hypotension. FINDINGS: Comparisons made with the study dated 04/01/17. There are bilateral partially visualized pleural effusions with bibasilar subsegmental atelectasis an d/or infiltrate. There is mild to moderate free intraperitoneal fluid primarily within the pelvic cul-de-sac and about the right liver margin. The kidneys are again noted to be diminutive and demonstrate cortical thinning. There is postoperativ e change of right ureteral diversion with ileal conduit again noted. The right ureter again appears e nlarged and there is fat stranding about the right ureter and right renal pelvis. There is no myke h ydronephrosis. Extensive vascular calcifications are seen. the solid abdominal organs are suboptimall y evaluated in the absence of IV contrast material but demonstrates an otherwise unremarkable unenhan arron CT appearance. There is widespread noncircumscribed fluid density/stranding within both the intra peritoneal and subcutaneous fat. Bilateral fat containing inguinal hernias are seen. Lobulated partia lly calcified masses in the anterior low pelvis are redemonstrated. The more inferior and posteriorly located of these appears larger with respect to the prior study measuring about 8.1 cm in greatest t ransverse dimension as compared to 6.0 on the prior study. Extensive postoperative changes are seen involving the lumbar spine with increased density circumfere ntially in the epidural space presumably reflecting calcification. IMPRESSION: 1. Bilateral pleural effusions, free intraperitoneal fluid and anasarca. 2. Stable prominence of the diverted right ureter with associated surrounding fat stranding. No evidence for hydronephrosis. 3. Interval increase in size in lobulated partially calcified soft tissue mass within the anteri or low pelvis. POS: [facility]
--- NOTE | 2018-10-13 22:19 | CT ---
CT PULMONARY ANGIOGRAM WITH IV CONTRAST AND 3D MIP RECONSTRUCTION: 10/13/18 PROVIDED CLINICAL HISTORY: Shortness of breath. FINDINGS: There is vascular calcification noted. There is no evidence for central or segmental pulmonary embolu s. Heart appears enlarged. There are bilateral pleural effusions with bibasilar consolidation that may reflect pneumonia. There is no evidence for pneumothorax. The airway appears patent and of normal caliber. The osseous structu res demonstrate no acute findings. Postoperative changes are seen involving the spine. IMPRESSION: 1. No evidence for central or segmental pulmonary embolus. 2. Cardiomegaly. 3. Bilateral pleural effusions with bibasilar consolidation that may reflect pneumonia. POS: [facility]
[2018-10-13 23:37] LABS: Troponin I 2.758 ng/mL (< 0.028)
[2018-10-13] MEDS ORDERED: Ondansetron ODT 4 MG TAB PO PRN (23:50)
[2018-10-13] MEDS ORDERED: Acetaminophen 325 MG TAB PO PRN (23:50)
[2018-10-14 00:02] VITALS: BMI 29.5
[2018-10-14] MEDS ORDERED: traZODone HCl 50 MG TAB PO PRN (00:15)
[2018-10-14] MEDS ORDERED: Ondansetron ODT 4 MG TAB SL PRN (00:15)
[2018-10-14] MEDS ORDERED: traMADol HCl 50 MG TAB PO PRN (00:15)
[2018-10-14] MEDS ORDERED: Heparin 5,000 UNITS/ML VIAL SC SCH (00:30)
[2018-10-14] MEDS ORDERED: Prevnar 13-Val Conj/PF 0.5 ML SYRINGE IM ONE (01:00)
[2018-10-14 03:46] LABS: ALT (SGPT) 443 U/L (8-55); AST (SGOT) 432 U/L (5-34); Albumin 3.9 g/dL (3.4-4.8); Alkaline Phosphatase 186 U/L (40-150); Anion Gap 20 mmol/L (10-20); BUN (Urea Nitrogen) 62 mg/dL (8.4-25.7); Bilirubin, Total 0.8 mg/dL (0.2-1.2); Calc. Creatinine Clearance 16 mL/min (70-130); Calcium 9.2 mg/dL (7.8-10.44); Carbon Dioxide 23 mmol/L (23-31); Chloride 95 mmol/L (98-107); Estimated GFR-MDRD 11; Globulin 3.5 g/dL (2.4-3.5); Glucose 109 mg/dL (80-115); Potassium 5.4 mmol/L (3.5-5.1); Protein, Total 7.4 g/dL (5.8-8.1); Sodium 133 mmol/L (136-145)
[2018-10-14 04:08] LABS: HBSAg Index 0.35 S/CO (0-0.99); Hep B Surf Ag Non-Reactive S/CO (NonReactive)
[2018-10-14 04:09] LABS: Hep C IgG Ab Non-Reactive (NonReactive); Hep C Index 0.13 S/CO (0-0.79)
[2018-10-14 04:15] LABS: CKMB 28.5 ng/mL (0-6.6)
[2018-10-14 04:16] LABS: Hep B Surf AB Reactive (NonReactive)
[2018-10-14 04:17] LABS: HBSAB Concentration 325.17 mIU/mL
[2018-10-14 04:23] LABS: #Lymphocytes 0.5 thou/uL (1.20-3.40); #Monocytes 0.1 thou/uL (0.11-0.59); #Neutrophils 3.6 thou/uL (1.40-6.50); %Eosinophils 0.3 % (0.0-10.0); %Lymphocytes 11.7 % (21.0-51.0); %Monocytes 2.3 % (0.0-10.0); %Neutrophils 85.6 % (42.0-75.0); Anisocytosis SLIGHT = 6-15 cells (100X) (0-5/hpf); Hemoglobin 11.3 g/dL (14.0-18.0); Hypochromia SLIGHT = 6-15 cells (100X) (0-5/hpf); MDiff Complete? YES; Mean Corpuscular HGB CONC 28.4 g/dL (32.0-36.0); Mean Platelet Volume 10.9 fL (7.4-10.4); PLT Morphology Comment Appears Decreased; Platelet Count 91 thou/uL (130-400); RBC Distribution Width 18.9 % (11.5-14.5); Red Blood Cell (RBC) Count 4.19 mill/uL (4.70-6.10); White Blood Cell (WBC) Count 4.2 thou/uL (4.8-10.8)
--- NOTE | 2018-10-14 06:13 | PDOC.FM ---
- Subjective Subjective: Pleasant 63 yo male seen at bedside this AM. Patient states that he feels well. He states that he has no other problems. He and his both state that Palliative Care is something that they are interested in discussing. Patient states that he has no chest pain, sob, n/v/d. He states that his BP is normally in the 90s systolic. He states that he is wanting to have his lyrica back on because he states he can really tell when he misses a dose. No other complaints. - Objective Vital Signs & Weight: Vital Signs (12 hours) Temp Pulse Resp BP BP Pulse Ox 10/14/18 05:22 98 10/14/18 02:56 96.9 F L 73 18 93/49 L 98 10/13/18 22:57 96.4 F L 75 20 114/58 L 100 10/13/18 22:53 96.4 F L 75 20 114/58 L 114/58 L 100 Weight Weight 85.457 kg Result Diagrams: 10/14/18 03:17 10/14/18 03:17 Phys Exam - Physical Examination Constitutional: NAD Dry mucous membranes Neck: supple Respiratory: no wheezing, clear to auscultation bilateral Cardiovascular: RRR, no significant murmur Gastrointestinal: soft, non-tender, no distention, positive bowel sounds Musculoskeletal: no edema, pulses present Atrophy to bilateral lower extremities Psychiatric: A&O x 3 Skin: no rash Dx/Plan (1) Chronic inflammatory demyelinating polyneuropathy Code(s): G61.81 - CHRONIC INFLAMMATORY DEMYELINATING POLYNEURITIS Status: Acute (2) HFrEF (heart failure with reduced ejection fraction) Code(s): I50.20 - UNSPECIFIED SYSTOLIC (CONGESTIVE) HEART FAILURE Status: Acute (3) Elevated troponin Code(s): R74.8 - ABNORMAL LEVELS OF OTHER SERUM ENZYMES Status: Acute (4) Bandemia Code(s): D72.825 - [place] Status: Acute (5) Hypotension Status: Acute (6) ESRD (end stage renal disease) on dialysis Code(s): N18.6 - END STAGE RENAL DISEASE; Z99.2 - DEPENDENCE ON RENAL DIALYSIS Status: Chronic - Plan Plan: CIDP - Consider workup for Adrenal insufficiency due to apparent improvement from steroid administration in ED - Will consult Palliative care for further treatment goals. Hypotension - Admit to tele obs - Pt appears near baseline - Patient is A&O x3 Bandemia - Continue vancomycin in dialysis - Procal 0.6 - WBC 4.2 - Rule out septic causes with blood cultures Elevated troponins - Initial 1.6, baseline .2 - this AM 2.8 - EKG showed no st changes - Dr. Santana, cardiology, consulted and appreciate his recs - Believed to be demand, will continue to trend until decreases HFrEF - Echo shows EF of 15-20% with severe paradoxical septal defect. CAD - Continue home meds ESRD - Consult nephrology in the morning - Appreciate Dr. Bonner's recs - Likely dialysis this AM HTN - Pt has not required medications in years, will monitor Disposition: Guarded, will continue current plan of care. Addendum - Attending - Attending Attestation Date/Time: 10/14/18 [id number] I personally evaluated the patient and discussed the management with Dr. Drew. I agree with the History, Examination, Assessment and Plan documented above with any addition or exceptions noted below. Patient doing somewhat better this morning. He is definitely more alert this morning and his BP is improved. He is receiving antibiotic therapy as we await negative cultures, no evidence for major bacterial infection but with PCT elevated and left shift in WBC, will continue for now. He also had a low normal cortisol and need to consider relative adrenal insufficiency as cause which might explain why he had some improvement overnight as he received methylpred in the ER. Will discuss case with Cardiology today and see if any further interventions are needed. Also will consult Palliative care for goals of care. Troponins continue to be elevated but are anticipated to be due to demand ischemia.
[2018-10-14] MEDS: Heparin 5,000 UNITS/ML VIAL SC SCH ×3 (10:14→20:27)
[2018-10-14] MEDS: Pregabalin 75 MG CAP PO SCH ×2 (10:14→20:24)
[2018-10-14] MEDS: Stress 600 With Zinc 1 TAB PO SCH (10:14)
[2018-10-14] MEDS: Zinc Sulfate 220 MG CAP PO SCH (10:14)
[2018-10-14] MEDS: Midodrine HCl 5 MG TAB PO SCH ×3 (10:16→20:24)
[2018-10-14] MEDS: Ascorbic Acid 500 mg Chewable Tablet PO SCH (10:16)
[2018-10-14] MEDS ORDERED: Epoetin (ESRD) 20,000 UNITS/ML IVP SCH (11:00)
[2018-10-14 11:15] LABS: Critical Call Chem Troponin I RESULT DECREASING; Troponin I 2.314 ng/mL (< 0.028)
--- NOTE | 2018-10-14 15:00 | PRG ---
DATE OF SERVICE: 10/14/2018 SUBJECTIVE: Mr. Zuniga was admitted to the hospital through the emergency room, it is outlined on the chart. He is feeling better today. He is on hemodialysis now. No chest pain or pressure. OBJECTIVE: VITAL SIGNS: His blood pressure 95/52, he is on midodrine; pulse is 70, it was 60 earlier. LUNGS: Clear. CARDIAC: Normal S1. Normal S2. I did not hear any murmur. ABDOMEN: Soft, nontender. EXTREMITIES: No edema. DIAGNOSTIC DATA: Echocardiogram done yesterday showed ejection fraction 15% to 20%. There is paradoxical septal motion. EKG shows a narrow complex QRS. CT pulmonary angiogram was negative for pulmonary emboli. He has aortic stenosis. It is very low gradient, probably moderate. Looking back at the previous echos, he had a normal ejection fraction with a gradient about 20 mm about a year ago, so I do not think this is severe aortic stenosis. At this point, there does not appear to be really anything else is feasible from a cardiac standpoint. Arrangements have been made to place him on hospice/palliative care, I agree with that. Okay to me to be released home. Tomorrow, if necessary, midodrine could be increased to 10 mg three times a day. Job ID: [id number]
[2018-10-14] MEDS: Niacin 500 MG TAB PO SCH (20:24)
[2018-10-14] MEDS: Atorvastatin Calcium 10 MG TAB PO SCH (20:25)
[2018-10-14] MEDS ORDERED: Vortioxetine Hydrobromide [Trintellix] 10 MG PO SCH (21:00)
--- NOTE | 2018-10-15 00:49 | CON ---
DATE OF CONSULTATION: HISTORY OF PRESENT ILLNESS: Mr. Zuniga is a 63-year-old white male with ESRD from chronic interstitial nephritis, hypertension, coronary artery disease, CHF , was admitted due to hypotension. 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 Cardiac echo has recently been done, which showed an EF of 15%. We are being consulted for his maintenance hemodialysis. Please note, he does home hemodialysis at home. I have decided to do a 3-hour hemodialysis with this patient with minimal fluid removal due to the low blood pressure. REVIEW OF SYSTEMS: Positive for generalized malaise. No chest pain. Positive for chronic shortness of breath. No nausea or vomiting. No fever or chills. No headache. No syncopal episode. No productive cough. Positive for confusion. MEDICATIONS: 1. Vitamin C 500 mg daily. 2. Aspirin 81 mg tab daily. 3. Lipitor 10 mg tab at bedtime. 4. Procrit 15,000 units IV every 3 days. 5. Heparin 5000 units subcu t.i.d. 6. Midodrine 5 mg p.o. t.i.d. 7. Niacin 1000 mg at bedtime. 8. Trintellix 10 mg at bedtime. 9. Lyrica 150 mg p.o. b.i.d. 10. Desyrel 50 mg at bedtime p.r.n. PAST MEDICAL HISTORY: 1. ESRD from chronic interstitial nephritis. 2. CHF. 3. Hypertension. 4. Coronary artery disease. 5. History of congenital bladder problems. PAST SURGICAL HISTORY: 1. Status post cardiac cath. 2. Status post coronary artery stent placement. 3. Status post CABG. 4. Status post colonoscopy. 5. Status post AV fistula placement. 6. Status post placement of ileostomy/ileal conduit. 7. Status post laparoscopic cholecystectomy. 8. Status post right inguinal hernia repair. SOCIAL HISTORY: The patient is . 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 The patient lives in [place]. . No children. Smoked for 15 years one and a half pack a day. Alcohol, none. Education, high school. No IV drug abuse. Status post blood transfusion. ALLERGIES: 1. IODINE. 2. LEVAQUIN. TRAUMA: Status post right leg fracture. IMMUNIZATION: Up-to-date. HOSPITALIZATIONS: Please see past medical history. FAMILY HISTORY: No family history of ESRD. PHYSICAL EXAMINATION: VITAL SIGNS: Blood pressure is 90/70 with the heart rate of 71, respiratory rate of 20, temperature 99.1, pulse ox 98%. GENERAL: Awake, supine, confused, not in overt distress. SKIN: Adequate turgor. HEENT: He has pinkish conjunctivae. Anicteric sclerae. NECK: No neck mass. No carotid bruits. No JVD. CHEST: No deformities. LUNGS: Decreased breath sounds. HEART: Normal sinus rhythm. No murmur. No gallops. No rubs. ABDOMEN: Globular, soft, nontender. No masses. Positive for an ileal conduit/ileostomy. EXTREMITIES: No edema. No deformities. LABORATORY DATA: Laboratories of October 14, 2018: White count 4.2, hemoglobin 11.3. Sodium 133, potassium 5.4, chloride 95, carbon dioxide 23, BUN 62, creatinine 5.47, glucose 109, AST 432, ALT 443. Troponin I 2.314. Cortisol level 4.9. ASSESSMENT AND PLAN: 1. ESRD. Minimal fluid removal with hemodialysis. The plan is to place him on a 3 times a week hemodialysis. Today, he is only undergoing 3 hours of hemodialysis due to the low blood pressure. 2. Hypotension, rule out myocardial infarction. The patient also has significant decrease in ejection fraction. He may have end-stage heart disease. Cardiology is following. Please note, troponin I is 2.314. Consideration for palliative or hospice care has been discussed with the by the family medicine. Job ID: [id number] MTDD
--- NOTE | 2018-10-15 07:17 | PDOC.FM ---
- Subjective Subjective: Patient asleep in bed prior to interview. He is sleepy and slightly disoriented. When asked about CP or SOB he said yes, but when I asked which one , he said he wasn't sure. Said he has no concerns at this time. He did report that he got dialysis, but discussion with nurse revealed that he did not get dialysis. Palliative care was consulted and discussed goals of care were discussed. He did have low BPs overnight, but no symptoms or altered mentation per night team. - Objective MAR Reviewed: Yes Vital Signs & Weight: Vital Signs (12 hours) Temp Pulse Resp BP BP Pulse Ox 10/15/18 05:26 95 10/15/18 04:00 97.6 F 73 18 97/35 L 95 10/15/18 00:00 97.6 F 68 20 88/54 L 96 10/14/18 20:25 96.1 F L 79 18 123/50 L 93 L 10/14/18 20:00 96.1 F L 79 18 123/50 L 93 L Weight Admit Weight 85.457 kg Weight 83.234 kg I&O: 10/14/18 10/15/18 10/16/18 06:59 06:59 06:59 Intake Total 100 100 Output Total 50 25 Balance 50 75 Result Diagrams: 10/14/18 03:17 10/14/18 03:17 Phys Exam - Physical Examination Constitutional: NAD HEENT: moist MMs Respiratory: clear to auscultation bilateral Cardiovascular: RRR ostomy bag on right abdomen Musculoskeletal: no edema, pulses present Neurological: non-focal Deviation from normal: drowsy Skin: no rash Dx/Plan (1) Chronic inflammatory demyelinating polyneuropathy Code(s): G61.81 - CHRONIC INFLAMMATORY DEMYELINATING POLYNEURITIS Status: Acute Plan: patient mostly unable to give history or updates on goals of care this morning. Will come back later today to discuss with family who has been in the room prior days. (2) HFrEF (heart failure with reduced ejection fraction) Code(s): I50.20 - UNSPECIFIED SYSTOLIC (CONGESTIVE) HEART FAILURE Status: Acute Plan: EF 15-20% reported with severe paradoxical septal defect (3) Hypotension Status: Acute (4) CAD (coronary artery disease) Code(s): I25.10 - ATHSCL HEART DISEASE OF [place] CORONARY ARTERY W/O ANG PCTRS Status: Chronic Qualifiers: Coronary Disease-Associated Artery/Lesion type: [place] artery [place] vs. transplanted heart: [place] heart Associated angina: without angina Qualified Code(s): I25.10 - Atherosclerotic heart disease of [place] coronary artery without angina pectoris Plan: -Dr. Santana consulted, recs greatly appreciated -no aggressive intervention at this time for increased troponins (5) ESRD (end stage renal disease) on dialysis Code(s): N18.6 - END STAGE RENAL DISEASE; Z99.2 - DEPENDENCE ON RENAL DIALYSIS Status: Chronic Plan: Per nursing staff patient was not given dialysis yesterday. (6) Elevated troponin Code(s): R74.8 - ABNORMAL LEVELS OF OTHER SERUM ENZYMES Status: Acute Addendum - Attending - Attending Attestation Date/Time: 10/15/18 8373 I personally evaluated the patient and discussed the management with Dr. Haynes I agree with the History, Examination, Assessment and Plan documented above with any addition or exceptions noted below- Patient without complaints. Afebrile VSS. A/P: 1) CIDP- stable. 2) Hypotension- asymptomatic; will increase midodrine to 10 mg TID per cardiology recommendation. 3) ESRD- continue HD as per nephrology.
[2018-10-15] MEDS: Zinc Sulfate 220 MG CAP PO SCH (09:22)
[2018-10-15] MEDS: Pregabalin 75 MG CAP PO SCH ×2 (09:22→21:24)
[2018-10-15] MEDS: Stress 600 With Zinc 1 TAB PO SCH (09:22)
[2018-10-15] MEDS: Ascorbic Acid 500 mg Chewable Tablet PO SCH (09:22)
[2018-10-15] MEDS: Midodrine HCl 5 MG TAB PO SCH ×3 (09:22→21:24)
[2018-10-15] MEDS: Heparin 5,000 UNITS/ML VIAL SC SCH ×3 (09:23→21:30)
--- NOTE | 2018-10-15 10:00 | PRG ---
DATE OF SERVICE: 10/15/2018 SUBJECTIVE: Mr. Zuniga is a 63-year-old white male, who has ESRD and home hemodialysis. He dialyzes himself on a daily basis. We are now converting him while he is in the hospital 2 or 3 times a week hemodialysis. He did undergo hemodialysis yesterday for 3 hours. Minimal fluid removal was done due to the low blood pressure. This morning, he is noted to be still confused. However, he denies any chest pain or shortness of breath. OBJECTIVE: VITAL SIGNS: Blood pressure is 75/36, heart rate 67, respiratory rate 18, temperature 97.8, and pulse ox 92%. GENERAL: The patient is sleepy, arousable, comfortable, morbidly obese. SKIN: Adequate turgor. HEENT: He has pinkish conjunctivae. Anicteric sclerae. NECK: No neck mass. No carotid bruits. No JVD. CHEST: No deformities. LUNGS: Decreased breath sounds. No wheezing. No crackles. HEART: Normal sinus rhythm. No murmurs. No gallops. No rubs. ABDOMEN: Globular, soft, and nontender. EXTREMITIES: Trace edema. MEDICATIONS: Medications of 10/15/2018 were reviewed. LABORATORY DATA: Laboratories of 10/14/2018; hemoglobin 11.3. Sodium 133, potassium 5.4, chloride 95, carbon dioxide 23, BUN 62, creatinine 5.47, AST 432 , ALT 443. Troponin I is 2.314. ASSESSMENT AND PLAN: 1. End-stage renal disease-stable. We will continue current Wednesday, Wednesday, and Wednesday hemodialysis. Again, fluid removal only if tolerated by the patient. Due to the low blood pressure, we are somewhat hesitant to do aggressive fluid removal with this patient. 2. Chronic hypotension, currently on midodrine. Last cardiac echo showed a decreased ejection fraction. 3. Coronary artery disease/status post myocardial infarction - Cardiology is following. The patient is being considered for palliative care. Agreed with current management. Recheck basic metabolic, CBC in a.m. Job ID: [id number] MTDD
[2018-10-15] MEDS ORDERED: Midodrine HCl 5 MG TAB PO SCH (11:38)
[2018-10-15] MEDS: Niacin 500 MG TAB PO SCH (21:24)
[2018-10-15] MEDS: Atorvastatin Calcium 10 MG TAB PO SCH (21:24)
[2018-10-16 05:44] LABS: Anion Gap 20 mmol/L (10-20); BUN (Urea Nitrogen) 42 mg/dL (8.4-25.7); Calc. Creatinine Clearance 19 mL/min (70-130); Carbon Dioxide 23 mmol/L (23-31); Chloride 97 mmol/L (98-107); Estimated GFR-MDRD 12; Glucose 85 mg/dL (80-115); Potassium 4.1 mmol/L (3.5-5.1); Sodium 136 mmol/L (136-145)
--- NOTE | 2018-10-16 06:21 | PDOC.FM ---
- Subjective Subjective: 63 yo male seen at bedside this AM. Patient had no acute events overnight. I had a discussion with this patient regarding home care and home support. He repeatedly told me that he has a chair and a car to get home. I don't believe he was able to comprehend the conversation. I will again repeat this conversation with his when she arrives today. Patient did deny chest pain, sob, n/v/d, fevers, or chills. No other complaints. - Objective Vital Signs & Weight: Vital Signs (12 hours) Temp Pulse Resp BP Pulse Ox 10/16/18 04:20 97 F L 77 20 96/52 L 93 L 10/15/18 23:40 97.6 F 70 20 97/53 L 94 L 10/15/18 20:30 97.4 F L 74 20 90/46 L 93 L Weight Admit Weight 85.457 kg Weight 85.684 kg I&O: 10/14/18 10/15/18 10/16/18 06:59 06:59 06:59 Intake Total 100 100 120 Output Total 50 25 10 Balance 50 75 110 Result Diagrams: 10/16/18 04:30 10/16/18 04:30 Phys Exam - Physical Examination Constitutional: NAD HEENT: moist MMs Neck: supple Respiratory: no wheezing, clear to auscultation bilateral Cardiovascular: RRR, no significant murmur Gastrointestinal: soft, non-tender, no distention, positive bowel sounds Musculoskeletal: no edema, pulses present atrophy to lower extremities Neurological: non-focal, moves all 4 limbs Psychiatric: normal affect Skin: no rash, cap refill <2 seconds Dx/Plan (1) Chronic inflammatory demyelinating polyneuropathy Code(s): G61.81 - CHRONIC INFLAMMATORY DEMYELINATING POLYNEURITIS Status: Acute (2) HFrEF (heart failure with reduced ejection fraction) Code(s): I50.20 - UNSPECIFIED SYSTOLIC (CONGESTIVE) HEART FAILURE Status: Acute (3) Elevated troponin Code(s): R74.8 - ABNORMAL LEVELS OF OTHER SERUM ENZYMES Status: Acute (4) Bandemia Code(s): D72.825 - [place] Status: Acute (5) Hypotension Status: Acute (6) ESRD (end stage renal disease) on dialysis Code(s): N18.6 - END STAGE RENAL DISEASE; Z99.2 - DEPENDENCE ON RENAL DIALYSIS Status: Chronic - Plan Plan: CIDP - Consider workup for Adrenal insufficiency due to apparent improvement from steroid administration in ED - Cortisol borderline low - Consulted Palliative Care for coordination Hypotension - Admit to tele obs - Pt appears near baseline - Patient is A&O x3 - Per Dr. Santana nothing else to be done and agrees with hospice placement. - Can increase Midodrine to 10 mg TID for BP support Bandemia - Continue vancomycin in dialysis - Blood cultures negative at 48 hours Elevated troponins - Initial 1.6, baseline .2 - Downtrended and not rechecked - EKG showed no st changes - Dr. Santana, cardiology, consulted and appreciate his recs HFrEF - Echo shows EF of 15-20% with severe paradoxical septal defect. CAD - Continue home meds ESRD - Appreciate Dr. Bonner's recs - Per Dr. Bonner continue dialysis MWF - Caution with fluid removal HTN - Pt has not required medications in years, will monitor Disposition: Guarded, will continue current plan of care with possible discharge today. Addendum - Attending - Attending Attestation Date/Time: 10/16/18 1028 I personally evaluated the patient and discussed the management with Dr. Drew I agree with the History, Examination, Assessment and Plan documented above with any addition or exceptions noted below- 1) Hypotension- improved with increased dose of midodrine. Continue current meds. 2) CIDP- stable. 3) ESRD- continue HD. 4) Disposition- plan to d/c home today as BP stble and improved now.
[2018-10-16 06:30] LABS: Anisocytosis SLIGHT = 6-15 cells (100X) (0-5/hpf); Band 6 % (5-11); Eosinophils 2 % (0-10); Hemoglobin 10.7 g/dL (14.0-18.0); Hypochromia SLIGHT = 6-15 cells (100X) (0-5/hpf); Lymphocytes 21 % (21-51); MDiff Complete? YES; Mean Corpuscular HGB CONC 27.6 g/dL (32.0-36.0); Mean Corpuscular Hemoglobin 26.8 pg (27.0-31.0); Mean Corpuscular Volume 97.1 fL (78.0-98.0); Mean Platelet Volume 10.3 fL (7.4-10.4); Monocytes 12 % (0-10); Neutrophil 59 % (42-75); PLT Morphology Comment Appears Decreased; Platelet Count 119 thou/uL (130-400); Polychromasia SLIGHT = 2-3 cells (100X) (0-2/hpf)
[2018-10-16 07:37] VITALS: TEMP 97.8
[2018-10-16] MEDS: Midodrine HCl 5 MG TAB PO SCH (09:08)
[2018-10-16] MEDS: Ascorbic Acid 500 mg Chewable Tablet PO SCH (09:09)
[2018-10-16] MEDS: Pregabalin 75 MG CAP PO SCH (09:09)
[2018-10-16] MEDS: Stress 600 With Zinc 1 TAB PO SCH (09:09)
[2018-10-16] MEDS: Zinc Sulfate 220 MG CAP PO SCH (09:09)
[2018-10-16] MEDS: Heparin 5,000 UNITS/ML VIAL SC SCH (09:10)
--- NOTE | 2018-10-16 10:37 | PRG ---
DATE OF SERVICE: 10/16/2018 RENAL MEDICINE SUBJECTIVE: Mr. Zuniga is a 63-year-old white male with ESRD and home hemodialysis. He underwent dialysis yesterday and tolerated this. He has also most likely end-stage heart disease. He had elevated troponin I and admitted. He is chronically on the hypotensive side and currently on midodrine. This morning, he is more awake; however, I feel he is still more confused. The family is deciding whether to consider palliative care or hospice for him. For the moment, they will finalize the decision in the next several weeks. He will continue his home hemodialysis. The plan is to discharge him today. OBJECTIVE: VITAL SIGNS: Blood pressure is 102/50, heart rate 80, respiratory rate 16, temperature 97.8, and pulse ox 90%. GENERAL: Noted to be awake, supine, not in overt distress, obese. SKIN: Adequate turgor. HEENT: He has a pinkish conjunctivae. Anicteric sclerae. No neck mass. No carotid bruits. No JVD. CHEST: No deformities. LUNGS: Decreased breath sounds. HEART: Normal sinus rhythm. No murmurs, gallops, or rubs. ABDOMEN: Globular, soft, and nontender. No masses. EXTREMITIES: No edema. No deformities. MEDICATIONS: Medications of October 16, 2018, reviewed. LABORATORY DATA: Laboratories of October 16, 2018; white count 6, hemoglobin 10.7. Sodium 136, potassium 4.1, chloride 97, carbon dioxide 23, BUN 42, creatinine 4.75, glucose 85, and calcium 9. On October 14, 2018; troponin I was 2.3. ASSESSMENT AND PLAN: 1. Status post myocardial infarction-supportive care. Currently on the chronic hypotension. Medical management. 2. End-stage renal disease, stable. 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 3. Overall prognosis remains guarded with this patient. Agree with plan of discharge. Job ID: [id number] MTDD
[2018-10-16 11:28] VITALS: BP 90/44
--- NOTE | 2018-10-17 07:34 | DIS ---
DATE OF ADMISSION: 10/15/2018 DATE OF DISCHARGE: 10/16/2018 RESIDENT: Torrey Drew M.D. ADMITTING ATTENDING: Lester Gongora MD DISCHARGE ATTENDING: Debbi Irwin MD CONSULTATIONS: 1. Case management. 2. Nephrology, Dr. Bonner. 3. Cardiology, Dr. Santana. 4. Palliative Care. PROCEDURES: 1. On 10/13/2018, the patient underwent a chest thorax CTA that showed no evidence of central or segmental pulmonary embolus, cardiomegaly, bilateral pleural effusions, bibasilar consolidation that may reflect pneumonia. 2. On 10/13/2018, the patient underwent a chest x-ray that showed cardiomegaly and edema as well as effusions concerning for congestive heart failure. 3. On 10/13/2018, the patient underwent abdominal ultrasound that showed no evidence for any acute process. 4. On 10/13/2018, the patient underwent an abdominal pelvis CT that showed bilateral pleural effusion, free intraperitoneal fluid, and anasarca. Stable prominence of the diverted right ureter with associated surrounding fat stranding, no evidence for hydronephrosis. 5. Interval increase in size and lobulated, partially calcified soft tissue mass with the anterior low pelvis. PRIMARY DIAGNOSES: 1. Chronic inflammatory demyelinating polyneuropathy. 2. Heart failure with reduced ejection fraction. 3. Elevated troponins. 4. Bandemia. 5. Hypotension. 6. End-stage renal disease, on dialysis. 7. Coronary artery disease. DISCHARGE MEDICATIONS: 1. Protonix 40 mg p.o. daily. 2. Zofran 4 mg p.o. q.6h p.r.n. 3. Niacin 1000 mg p.o. at bedtime. 4. Trazodone 50 mg p.o. at bedtime. 5. Atorvastatin 10 mg p.o. at bedtime. 6. Zinc 100 mg p.o. b.i.d. 7. Vitamin B complex 1 tablet p.o. daily. 8. Aspirin 81 mg p.o. daily. 9. Lyrica 150 mg p.o. b.i.d. 10. Brintellix 10 mg p.o. daily. 11. Epogen 15,000 units every 3 days. 12. Tramadol 50 mg p.o. q.6h p.r.n. 13. Ibuprofen 400 mg p.o. q.6h. 14. Ascorbic acid 500 mg p.o. daily. 15. Acetaminophen 650 mg p.o. q.4h p.r.n. 16. Midodrine 10 mg p.o. t.i.d. Discontinue medications, midodrine 5 mg p.o. t.i.d. HISTORY OF PRESENT ILLNESS AND HOSPITAL COURSE: This patient is a 63-year-old male with past medical history of hypertension; CAD, status post CABG; end-stage renal disease, on home hemodialysis; as well as heart failure with reduced ejection fraction, who presents to the ED from Dr. Santana's office. Dr. Santana is his primary solar site assessment specialist and he was there undergoing an echocardiogram and he was found to be hypotensive with systolic BP in the 80s. The patient denied any dizziness, lightheadedness, shortness of breath, chest pain, syncope, or changes in mental status. The patient's was at the bedside and states he has been doing well today, moving in his electric scooter and having a good day. After discussion with the , she did bring up to the conservation to initiate palliative care versus hospice care. During this hospitalization, the patient had some notable lab values with white blood cell count of 4.2, hemoglobin roughly around 11 with hematocrit around 39.8, and platelet count ranging from 91 to 119. The patient did have elevated troponins, initially when he was presented at 1.6 that trended up to 2.8 and then trended down to 2.3 likely due to demand ischemia. The patient had a bump in his LFTs to as high as 432 and 443 and his potassium on admission was 5.1 up to 5.4 and then on day of discharge, it was 4.1. The patient otherwise continued to have hypotensive blood pressure as low as 70s over 30s. He actually underwent hemodialysis for 3 hours with very minimal fluid taken off, just filtration due to his hypotension. Dr. Bonner was cautious with his fluid state and was cognizant of making sure to leave enough volume that he would not have any further problems. Dr. Santana did come to see the patient while he was in hospitalization. He had a recent echocardiogram that showed severe paradoxical septal motion as well as an EF of 10% to 15%, which is a new finding. Dr. Santana recommended this patient to hospice care as there was nothing else to be done and he fears that the end is very soon near for this patient. Long conversations were held with this patient's family, we advised for palliative care versus hospice care. The patient's wanted to continue with hemodialysis and so palliative care was the more viable option for his symptoms. Discharge planning was initiated, the patient will have Palliative Care assessment as well as home health services at his home already and he will be re-established with Palliative Care Team in [place] area around [place], [place]. The patient otherwise was a pleasant and did not have any other acute complications during this hospitalization. DISPOSITION: Poor. DISCHARGE INSTRUCTIONS: 1. Location: He will be discharged home under the care of his family. 2. Diet: Will be as tolerated with no restrictions. 3. Activity: Will be as tolerated with no restrictions; however, he is essentially bedridden. 4. Followup: Will be with his primary care provide, Dr. Tejinder Oneil in the next 3 to [address] Santana in the upcoming future to further discuss his chronic long-term heart disease. Job ID: [id number]
== END 2018-10-16 13:50 | disposition home health service (06) | DRG 291 ==
LOC: ERS 15:11 → 2NO 18:08 → OBSVTOIN 10-15 18:36
PROVIDERS: ADMIT Student in an Organized Health Care Education/Training Program; ATTEND Student in an Organized Health Care Education/Training Program
DX: I13.2 Hypertensive heart and chronic kidney disease with heart failure and with stage 5 chronic kidney disease, or end stage renal disease (principal); N18.6 End stage renal disease; I50.20 Unspecified systolic (congestive) heart failure; G61.81 Chronic inflammatory demyelinating polyneuritis; Z99.2 Dependence on renal dialysis; I25.10 Atherosclerotic heart disease of native coronary artery without angina pectoris; Z95.1 Presence of aortocoronary bypass graft; D72.825 Bandemia; I95.89 Other hypotension; I25.2 Old myocardial infarction
CPT/HCPCS: 36415; 71045; 71275; 74176; 76705; 80048; 80053; 82140; 82533; 82550; 82553; 83605; 83880; 84145; 84484; 85025; 86706; 86803; 87040; 87340; 90935; 93005; 96365; 96375; G0257; J1200; J1644; J2543; J2930; Q4081; S0028